=== PATIENT | male | born 1995 | race Caucasian/White ===

== ENCOUNTER 2017-01-13 19:39 | Inpatient (IN) | payer BC ==
[2017-01-13 20:22] LABS: Hematocrit 49 % (42-52); Hemoglobin 16.5 g/dl (14.0-18.0); Mean Corpuscular HGB Conc 34 g/dl (31-36); Mean Corpuscular Hemoglobin 30 pg (27-31); Mean Corpuscular Volume 90 fL (80-94); Mean Platelet Volume 8 um3 (7.4-10.4); Red Blood Count 5.45 10^6/ul (4.0-5.4); Red Cell Distribution Width 13 % (10.5-15); White Blood Count 6.9 10^3/ul (3.5-10.8)
[2017-01-13 20:40] LABS: ALT 38 U/L (7-52); AST 31 U/L (13-39); Albumin 4.6 g/dL (3.2-5.2); Alkaline Phosphatase 77 U/L (34-104); Anion Gap 4 mmol/L (2-11); BUN/Creatinine Ratio 14.4 (8-20); Blood Urea Nitrogen 15 mg/dL (6-24); CO2 Carbon Dioxide 28 mmol/L (22-32); Calcium 9.7 mg/dL (8.6-10.3); Chloride 105 mmol/L (101-111); EGFR African American 115.9 (>60); EGFR Non-African American 90.2 (>60); Globulin 3.2 g/dL (2-4); Glucose 92 mg/dL (70-100); Potassium 3.8 mmol/L (3.5-5.0); Sodium 137 mmol/L (133-145); Total Protein 7.8 g/dL (6.4-8.9)
--- NOTE | 2017-01-13 20:42 | ED ---
Bryon Lea Adam, scribed for Alejandro Perry MD on 01/13/17 at 2027 . Psychiatric Complaint - HPI Summary HPI Summary: Pt is a 22 year old male brought in by police with HI. The pt has been threatening to kill his parents and is concerned about the ghost of Hitler running the [place]. He has a positive psychiatric Hx and has reportedly not been taking his medications as prescribed. - History Of Current Complaint Chief Complaint: [facility] Time Seen by Provider: 01/13/17 19:52 Hx Obtained From: Patient Onset/Duration: Gradual Onset, Lasting Hours, Still Present Timing: Constant Severity Initially: Moderate Severity Currently: Moderate Character: Angry Associated Signs And Symptoms: Positive: Paranoid Behavior Related History: Positive For: Prior Psychiatric Issues Has Homicidal: Reports: Thoughts - Allergies/Home Medications Allergies/Adverse Reactions: Allergies Allergy/AdvReac Type Severity Reaction Status Date / Time No Known Allergies Allergy Verified 06/29/16 19:11 PMH/Surg Hx/FS Hx/Imm Hx Cardiovascular History: Denies: Hx Auto Implanted Cardiovert Defib History: Reports: Other Problems/Disorders - Acute renal injury 07/01/16 Musculoskeletal History: Reports: Other Musculoskeletal History - dx rhabdomyolysis 07/01/16 Psychiatric History: Reports: Hx Anxiety, Hx Depression, Hx Panic Disorder, Hx Inpatient Treatment, Hx Community Mental Health Tx, Hx Schizophrenia, Hx Suicide Attempt, Hx of Violent Episodes Against Others, Hx Substance Abuse Denies: Hx Eating Disorder Infectious Disease History: No Infectious Disease History: Denies: Traveled Outside the [place] in Last 30 Days - Family History Known Family History: Negative: Cardiac Disease, Hypertension, Diabetes - Social History Occupation: Student Lives: With Family - Mother Alcohol Use: Occasionally Hx Substance Use: Yes Substance Use Type: Reports: Synthetic Drugs Substance Use Comment - Amount & Last Used: benzos, ectasy, pain pills Hx Tobacco Use: Yes Smoking Status (MU): Light Every Day Tobacco Smoker Type: Cigarettes Have You Smoked in the Last Year: Yes Review of Systems Negative: Fever Positive: Other - Threatening to kill parents, paranoid about ghost of hitler All Other Systems Reviewed And Are Negative: Yes Physical Exam Triage Information Reviewed: Yes Vital Signs On Initial Exam: Initial Vitals Temp Pulse Resp BP Pulse Ox 97.2 F 90 18 183/104 98 01/13/17 19:58 01/13/17 19:58 01/13/17 19:58 01/13/17 19:58 01/13/17 19:58 Vital Signs Reviewed: Yes Appearance: Positive: Well-Appearing, No Pain Distress Skin: Positive: Warm Head/Face: Positive: Normal Head/Face Inspection Eyes: Positive: Normal ENT: Positive: Hearing grossly normal Neck: Positive: Supple Respiratory/Lung Sounds: Positive: Breath Sounds Present Cardiovascular: Positive: RRR Abdomen Description: Positive: Nontender, Soft Bowel Sounds: Positive: Present Musculoskeletal: Positive: Strength/ROM Intact Neurological: Positive: Sensory/Motor Intact, Alert, Oriented to Person Place, Time Psychiatric: Positive: Anxious Diagnostics - Vital Signs Vital Signs Temp Pulse Resp BP Pulse Ox 01/13/17 19:58 97.2 F 90 18 183/104 98 - Laboratory Lab Results: Lab Results 01/13/17 01/13/17 Range/Units 20:15 20:15 WBC 6.9 (3.5-10.8) 10^3/ul RBC 5.45 H (4.0-5.4) 10^6/ul Hgb 16.5 (14.0-18.0) g/dl Hct 49 (42-52) % MCV 90 (80-94) fL MCH 30 (27-31) pg MCHC 34 (31-36) g/dl RDW 13 (10.5-15) % Plt Count 234 (150-450) 10^3/ul MPV 8 (7.4-10.4) um3 Neut % (Auto) 56.0 (38-83) % Lymph % (Auto) 35.2 (25-47) % Coal % (Auto) 6.5 (1-9) % Eos % (Auto) 2.0 (0-6) % Baso % (Auto) 0.3 (0-2) % Absolute Neuts (auto) 3.9 (1.5-7.7) 10^3/ul Absolute Lymphs (auto) 2.4 (1.0-4.8) 10^3/ul Absolute Monos (auto) 0.4 (0-0.8) 10^3/ul Absolute Eos (auto) 0.1 (0-0.6) 10^3/ul Absolute Basos (auto) 0 (0-0.2) 10^3/ul Absolute Nucleated RBC 0 10^3/ul Nucleated RBC % 0.1 Sodium 137 (133-145) mmol/L Potassium 3.8 (3.5-5.0) mmol/L Chloride 105 (101-111) mmol/L Carbon Dioxide 28 (22-32) mmol/L Anion Gap 4 (2-11) mmol/L BUN 15 (6-24) mg/dL Creatinine 1.04 (0.67-1.17) mg/dL Est GFR ( Amer) 115.9 (>60) Est GFR (Non-Af Amer) 90.2 (>60) BUN/Creatinine Ratio 14.4 (8-20) Glucose 92 (70-100) mg/dL Calcium 9.7 (8.6-10.3) mg/dL Total Bilirubin 0.40 (0.2-1.0) mg/dL AST 31 (13-39) U/L ALT 38 (7-52) U/L Alkaline Phosphatase 77 (34-104) U/L Total Protein 7.8 (6.4-8.9) g/dL Albumin 4.6 (3.2-5.2) g/dL Globulin 3.2 (2-4) g/dL Albumin/Globulin Ratio 1.4 (1-3) TSH Pending Salicylates Pending Acetaminophen Pending Serum Alcohol Pending Result Diagrams: 01/13/17 20:15 01/13/17 20:15 Lab Statement: Any lab studies that have been ordered have been reviewed, and results considered in the medical decision making process. Course/Dx - Differential Dx/Clinical Impression Provider Diagnosis: Homicidal ideation Discharge - Discharge Plan Condition: Fair Disposition: ADMITTED TO [facility] documentation as recorded by the Bryon chanel Adam accurately reflects the service I personally performed and the decisions made by , Alejandro Perry MD.
[2017-01-13 21:07] LABS: Acetaminophen < 15 mcg/mL; Alcohol < 10 mg/dL (<10); Salicylate < 2.50 mg/dL (<30)
[2017-01-13 21:17] LABS: TSH (Thyroid Stimulating Horm) 1.51 mcIU/mL (0.34-5.60)
[2017-01-13 21:33] LABS: Urine Bilirubin Negative (Negative); Urine Glucose Negative (Negative); Urine Nitrite Negative (Negative)
[2017-01-13 21:55] LABS: Benzodiazepine Urine Screen None Detected (None Detect)
[2017-01-14] MEDS ORDERED: Al Hydrox/Mg Hydrox/Simet LIQ* 30 ML UDC PO PRN (04:45)
[2017-01-14] MEDS ORDERED: Acetaminophen TAB* 325 MG PO PRN (04:45)
[2017-01-14] MEDS ORDERED: Nicotine Inhaler* 10 MG AMP INH PRN (04:45)
[2017-01-14] MEDS ORDERED: Haloperidol TAB* 5 MG PO PRN (04:45)
[2017-01-14] MEDS ORDERED: Nicotine GUM* 2 MG PO PRN (04:45)
[2017-01-14] MEDS ORDERED: Mouth Piece, Nicotine* 1 EACH CARTRIDGE INH SCH (04:45)
[2017-01-14] MEDS: Vitamin THERAPEUTIC TAB PO SCH (09:05)
[2017-01-14] MEDS: ARIPiprazole TAB* 5 MG PO SCH (15:38)
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
[2017-01-15] MEDS: ARIPiprazole TAB* 5 MG PO SCH (08:36)
[2017-01-15] MEDS: Vitamin THERAPEUTIC TAB PO SCH (08:36)
--- NOTE | 2017-01-15 10:44 | PN ---
Subjective - Subjective Service Type: 66629 Hosp care 15 min low complexity Subjective: The patient is calm and cooperative but withdrawn. He has difficulty answering future-oriented questions about subjects such as occupational and academic functioning. He is vague and somewhat abulic. The patient seems to display several so-called negative symptoms of schizophrenia such as amotivation, flattening of affect, lack of socialization and lack of spontaneity. Other peers have complained of his lack of boundaries, such as sitting abnormally close to others or walking into their rooms. He is taking the aripiprazole as directed but his insight remains suspect. The patient denies SI or HI. Objective - Appearance Appearance: Well Developed/Nourished Dysmorphic Features: No Hygiene: Normal Grooming: Fairly Well Kept - Behavior Psychomotor Activities: Normal Exhibits Abnormal Movement: No - Attitude and Relatedness Attitude and Relatedness: Withdrawn Eye Contact: Poor - Speech Quality: Unpressured Latencies: Long Quantity: Terse - Mood Patient's Decription of Mood: "Okay" - Affect Observed Affect: Unvariable Affect Consistent with: Euthymia - Thought Process Patient's Thought Process: Impoverished Thought Content: Yes Paranoid Ideation, No Passive Wish, No Suicidal Planning, No Homicidal Ideation - Sensorium Experiencing Hallucinations: No, Sensorium is Clear Type of Hallucinations: Visual: No, Auditory: No, Command: No - Level of Consciousness Level of Consciousness: Alert Orientation: Yes Intact, Yes Orientated to Time, Yes Orientated to Place, Yes Orientated to Person - Impulse Control Impulse Control: Poor - Insight and Judgement Insight and Judgement: Impaired - Group Participation Particating in Group Activities: No - Medication Management Medication Management Adherence: Yes Assessment - Assessment Merits Inpatient Hospitalization: For Immediate Safety, For Stabilization Inpatient DSM-IV Dx: Schizophrenia Clinical Impression: 22 y.o. single, white male with a history of schizophrenia and 4 past acute admissions to the [facility] arrives via a 9.41 in police custody after threatening several times to murder his mother. The patient presented as bizarre, paranoid and unable to control his actions. Plan - Plan Treatment Plan: Name: ELLEN PITT Birthdate: 1995 [id number] We have resumed the patient's aripiprazole at the dose of 10mg PO qday. We will try to re-enroll him in ACT services in the community if he will allow this. Continued Medication Management: Continue Outpt Medication Medications: Current Medications Acetaminophen (Tylenol Tab*) 650 mg PO Q4H PRN PRN Reason: PAIN or TEMP > 101 F Al Hydrox/Mg Hydrox/Simethicone (Maalox Plus*) 30 ml PO Q4H PRN PRN Reason: INDIGESTION Aripiprazole (Abilify Tab*) 10 mg PO DAILY [facility] Last Admin: 01/15/17 08:36 Dose: 10 mg Device (Nicotine Mouth Piece*) 1 each INH .CARTRIDGE [facility] Haloperidol (Haldol Tab*) 5 mg PO Q6H PRN PRN Reason: AGITATION Lorazepam (Ativan Tab(*)) 2 mg PO Q6H PRN PRN Reason: AGITATION Multivitamins (Theragran Tab*) 1 tab PO DAILY [facility] Last Admin: 01/15/17 08:36 Dose: 1 tab Nicotine (Nicotine Inhaler*) 10 mg INH Q2H PRN PRN Reason: CRAVING Nicotine Polacrilex (Nicotine Gum*) 2 mg PO Q2H PRN PRN Reason: CRAVING - Discharge Plan Discharge Plan: Inpatient Hospitalization
--- NOTE | 2017-01-15 11:30 | PN ---
MHU: Group Therapy Note - Service Type Service Type: [id number] Group Psychotherapy - CBT programming: Brendan was attentive and participatory in cbt programming this morning. He described "playing video games" when asked about what he is doing for work, and denied having any interest in attending college. He responded to direct prompts to engage, but was not spontaneous in converstation.
[2017-01-16] MEDS: ARIPiprazole TAB* 5 MG PO SCH (07:24)
[2017-01-16] MEDS: Vitamin THERAPEUTIC TAB PO SCH (07:24)
--- NOTE | 2017-01-16 12:00 | PN ---
MHU: Group Therapy Note - Service Type Service Type: 72621 Group Psychotherapy - Cognitive Behavioral Group Therapy ( CBT):Patient attended CBT programming this morning and presented with flat affect that did not vary with discussion. Although responsive to direct prompts to respond to questions, patient did not engage in spontaneous conversation.
--- NOTE | 2017-01-16 13:05 | PN ---
Subjective - Subjective Service Type: 13186 Hosp care 15 min low complexity Subjective: Joey is calm and cooperative on exam. He denies anger or HI towards his mother but continues to reiterate that he experiences her as controlling and hostile, both towards himself and his father. He apparently told staff this morning that his intention is to remain on aripiprazole for 30 days following discharge and then stop taking it. I try to educate him about the chronic nature of his illness with uncertain success. He is tolerating his medication well and has no acute complaints. Objective - Appearance Appearance: Well Developed/Nourished Dysmorphic Features: No Hygiene: Normal Grooming: Fairly Well Kept - Behavior Psychomotor Activities: Normal Exhibits Abnormal Movement: No - Attitude and Relatedness Attitude and Relatedness: Cooperative Eye Contact: Fair - Speech Quality: Unpressured Latencies: Normal Quantity: Terse - Mood Patient's Decription of Mood: "Okay" - Affect Observed Affect: Unvariable Affect Consistent with: Euthymia - Thought Process Patient's Thought Process: Impoverished Thought Content: Yes Paranoid Ideation, No Passive Wish, No Suicidal Planning, No Homicidal Ideation - Sensorium Experiencing Hallucinations: No, Sensorium is Clear Type of Hallucinations: Visual: No, Auditory: No, Command: No - Level of Consciousness Level of Consciousness: Alert Orientation: Yes Intact, Yes Orientated to Time, Yes Orientated to Place, Yes Orientated to Person - Impulse Control Impulse Control: Poor - Insight and Judgement Insight and Judgement: Impaired - Group Participation Particating in Group Activities: Yes - Medication Management Medication Management Adherence: Yes Assessment - Assessment Merits Inpatient Hospitalization: For Immediate Safety, For Stabilization Inpatient DSM-IV Dx: Schizophrenia Clinical Impression: 22 y.o. single, white male with a history of schizophrenia and 4 past acute admissions to the [facility] arrives via a 9.41 in police custody after threatening several times to murder his mother. The patient presented as bizarre, paranoid and unable to control his actions. Plan - Plan Treatment Plan: Name: ELLEN PITT Birthdate: 1995 [id number] We have resumed the patient's aripiprazole at the dose of 10mg PO qday. We will try to re-enroll him in ACT services in the community if he will allow this. Family meeting with his parents early next week. Continued Medication Management: Continue Outpt Medication Medications: Current Medications Acetaminophen (Tylenol Tab*) 650 mg PO Q4H PRN PRN Reason: PAIN or TEMP > 101 F Al Hydrox/Mg Hydrox/Simethicone (Maalox Plus*) 30 ml PO Q4H PRN PRN Reason: INDIGESTION Aripiprazole (Abilify Tab*) 10 mg PO DAILY [facility] Last Admin: 01/16/17 07:24 Dose: 10 mg Device (Nicotine Mouth Piece*) 1 each INH .CARTRIDGE [facility] Haloperidol (Haldol Tab*) 5 mg PO Q6H PRN PRN Reason: AGITATION Lorazepam (Ativan Tab(*)) 2 mg PO Q6H PRN PRN Reason: AGITATION Multivitamins (Theragran Tab*) 1 tab PO DAILY [facility] Last Admin: 01/16/17 07:24 Dose: 1 tab Nicotine (Nicotine Inhaler*) 10 mg INH Q2H PRN PRN Reason: CRAVING Nicotine Polacrilex (Nicotine Gum*) 2 mg PO Q2H PRN PRN Reason: CRAVING - Discharge Plan Discharge Plan: Inpatient Hospitalization
[2017-01-17] MEDS: ARIPiprazole TAB* 5 MG PO SCH (08:23)
[2017-01-17] MEDS: Vitamin THERAPEUTIC TAB PO SCH (08:23)
[2017-01-17] MEDS: LORazepam TAB(*) 1 MG PO PRN (18:09)
[2017-01-18] MEDS: Vitamin THERAPEUTIC TAB PO SCH (08:02)
[2017-01-18] MEDS: ARIPiprazole TAB* 5 MG PO SCH (08:02)
--- NOTE | 2017-01-18 20:49 | PN ---
Subjective - Subjective Service Type: [id number] Hosp care 15 min low complexity Subjective: Ellen offered no psychiatric complaints today and was found totally engaged in group. Says he is doing fine and denies suicidal/homicidal thoughts. Meds are helpin and wants to go home soon. Objective - Appearance Appearance: Healthy Appearing Dysmorphic Features: No Hygiene: Normal Grooming: Well Kept - Behavior Psychomotor Activities: Normal Exhibits Abnormal Movement: No - Attitude and Relatedness Attitude and Relatedness: Appropriate Eye Contact: Good - Speech Quality: Unpressured Latencies: Normal Quantity: Appropriate - Mood Patient's Decription of Mood: "Fine" - Affect Observed Affect: Non-labile - Thought Process Patient's Thought Process: Coherent, Goal Directed Thought Content: No Passive Wish, No Suicidal Planning, No Homicidal Ideation, No Paranoid Ideation - Sensorium Experiencing Hallucinations: No, Sensorium is Clear Type of Hallucinations: Visual: No, Auditory: No, Command: No - Level of Consciousness Level of Consciousness: Alert Orientation: Yes Intact, Yes Orientated to Time, Yes Orientated to Place, Yes Orientated to Person - Impulse Control Impulse Control: Intact - Insight and Judgement Insight and Judgement: Fair - Group Participation Particating in Group Activities: Yes - Medication Management Medication Management Adherence: Yes Assessment - Assessment Merits Inpatient Hospitalization: Consolidate Improvements, Pending Safe DC Plan Inpatient DSM-IV Dx: Schizophrenia Plan - Plan Treatment Plan: Name: ELLEN PITT Birthdate: 1995 [id number] Continued Medication Management: Continue Outpt Medication Medications: Current Medications Acetaminophen (Tylenol Tab*) 650 mg PO Q4H PRN PRN Reason: PAIN or TEMP > 101 F Al Hydrox/Mg Hydrox/Simethicone (Maalox Plus*) 30 ml PO Q4H PRN PRN Reason: INDIGESTION Aripiprazole (Abilify Tab*) 10 mg PO DAILY [facility] Last Admin: 01/18/17 08:02 Dose: 10 mg Device (Nicotine Mouth Piece*) 1 each INH .CARTRIDGE [facility] Haloperidol (Haldol Tab*) 5 mg PO Q6H PRN PRN Reason: AGITATION Lorazepam (Ativan Tab(*)) 2 mg PO Q6H PRN PRN Reason: AGITATION Last Admin: 01/17/17 18:09 Dose: 2 mg Multivitamins (Theragran Tab*) 1 tab PO DAILY [facility] Last Admin: 01/18/17 08:02 Dose: 1 tab Nicotine (Nicotine Inhaler*) 10 mg INH Q2H PRN PRN Reason: CRAVING Nicotine Polacrilex (Nicotine Gum*) 2 mg PO Q2H PRN PRN Reason: CRAVING - Discharge Plan Discharge Plan: Outpatient Follow Up Outpatient Program: [facility]
[2017-01-19] MEDS: Vitamin THERAPEUTIC TAB PO SCH (08:20)
[2017-01-19] MEDS: ARIPiprazole TAB* 5 MG PO SCH (08:20)
--- NOTE | 2017-01-19 12:52 | PN ---
Subjective - Subjective Service Type: [id number] Hosp care 15 min low complexity Subjective: Mr. Santizo remains vague and paranoid over the weekend, although he continues to deny SI or HI. He is not attending groups and was redirected several times recently to refrain from placing his underwear on the threshold of his door where others could see it. On exam he has a far away look and does not blink when speaking to me. I ask him about increasing his medication and he says "You 're the Doctor." When I respond that it's his health that we're concerned about he becomes angry saying "I'm no longer an involuntary patient at this hospital!" The patient walks away as he says this, indicating that our interview is over. Objective - Appearance Appearance: Well Developed/Nourished Dysmorphic Features: No Hygiene: Normal Grooming: Fairly Well Kept - Behavior Psychomotor Activities: Normal Exhibits Abnormal Movement: No - Attitude and Relatedness Attitude and Relatedness: Psychotically Related Eye Contact: Poor - Speech Quality: Unpressured Latencies: Long Quantity: Appropriate - Mood Patient's Decription of Mood: "Fine" - Affect Observed Affect: Unvariable Affect Consistent with: Dysphoria - Thought Process Patient's Thought Process: Impoverished Thought Content: Yes Paranoid Ideation, No Passive Wish, No Suicidal Planning, No Homicidal Ideation - Sensorium Experiencing Hallucinations: No, Sensorium is Clear Type of Hallucinations: Visual: No, Auditory: No, Command: No - Level of Consciousness Level of Consciousness: Alert Orientation: Yes Intact, Yes Orientated to Time, Yes Orientated to Place, Yes Orientated to Person - Impulse Control Impulse Control: Poor - Insight and Judgement Insight and Judgement: Impaired - Group Participation Particating in Group Activities: No - Medication Management Medication Management Adherence: Yes Assessment - Assessment Merits Inpatient Hospitalization: For Immediate Safety, For Stabilization Inpatient DSM-IV Dx: Schizophrenia Clinical Impression: 22 y.o. single, white male with a history of schizophrenia and 4 past acute [place] [facility] [place] [place] [facility] [place] via a 9.41 in police custody after threatening several times to murder his mother. The patient presented as bizarre, paranoid and unable to control his actions. Plan - Plan Treatment Plan: Name: ELLEN SANTIZO Birthdate: 1995 [id number] We have resumed the patient's aripiprazole at the dose of 10mg PO qday. He remains psychotic and we'll increase aripiprazole to 15mg daily starting tomorrow. We will try to re-enroll him in ACT services in the community if he will allow this. Family meeting with his parents some time this week if he can tolerate this. Continued Medication Management: Continue Outpt Medication Medications: Current Medications Acetaminophen (Tylenol Tab*) 650 mg PO Q4H PRN PRN Reason: PAIN or TEMP > 101 F Al Hydrox/Mg Hydrox/Simethicone (Maalox Plus*) 30 ml PO Q4H PRN PRN Reason: INDIGESTION Aripiprazole (Abilify Tab*) 15 mg PO DAILY [facility] Device (Nicotine Mouth Piece*) 1 each INH .CARTRIDGE [facility] Haloperidol (Haldol Tab*) 5 mg PO Q6H PRN PRN Reason: AGITATION Lorazepam (Ativan Tab(*)) 2 mg PO Q6H PRN PRN Reason: AGITATION Last Admin: 01/17/17 18:09 Dose: 2 mg Multivitamins (Theragran Tab*) 1 tab PO DAILY [facility] Last Admin: 01/19/17 08:20 Dose: 1 tab Nicotine (Nicotine Inhaler*) 10 mg INH Q2H PRN PRN Reason: CRAVING Nicotine Polacrilex (Nicotine Gum*) 2 mg PO Q2H PRN PRN Reason: CRAVING - Discharge Plan Discharge Plan: Inpatient Hospitalization
[2017-01-19] MEDS: LORazepam TAB(*) 1 MG PO PRN (18:18)
[2017-01-20] MEDS: ARIPiprazole TAB* 15 MG PO SCH (08:16)
[2017-01-20] MEDS: Vitamin THERAPEUTIC TAB PO SCH (08:16)
--- NOTE | 2017-01-20 12:35 | PN ---
Subjective - Subjective Service Type: [id number] Hosp care 15 min low complexity Subjective: The patient continues to display mild confusion, speech latency, poor insight and a vacant stare on examination. He is tolerating the aripiprazole well but will not commit to continuing this after discharge. As per staff, his parents are concerned about allowing him to come home after discharge and are inquiring about fpc placement. Objective - Appearance Appearance: Well Developed/Nourished Dysmorphic Features: No Hygiene: Normal Grooming: Well Kept - Behavior Psychomotor Activities: Abnormal-Decreased Exhibits Abnormal Movement: No - Attitude and Relatedness Attitude and Relatedness: Psychotically Related Eye Contact: Fair - Speech Quality: Unpressured Latencies: Long Quantity: Terse - Mood Patient's Decription of Mood: "Fine" - Affect Observed Affect: Unvariable Affect Consistent with: Euthymia - Thought Process Patient's Thought Process: Impoverished Thought Content: No Passive Wish, No Suicidal Planning, No Homicidal Ideation - Sensorium Experiencing Hallucinations: Yes Type of Hallucinations: Visual: No, Auditory: Yes, Command: No - Level of Consciousness Level of Consciousness: Alert Orientation: Yes Intact, Yes Orientated to Time, Yes Orientated to Place, Yes Orientated to Person - Impulse Control Impulse Control: Poor - Insight and Judgement Insight and Judgement: Impaired - Group Participation Particating in Group Activities: No - Medication Management Medication Management Adherence: Yes Assessment - Assessment Merits Inpatient Hospitalization: For Immediate Safety, For Stabilization Inpatient DSM-IV Dx: Schizophrenia Clinical Impression: 22 y.o. single, white male with a history of schizophrenia and 4 past acute admissions to the [facility] arrives via a 9.41 in police custody after threatening several times to murder his mother. The patient presented as bizarre, paranoid and unable to control his actions. Plan - Plan Treatment Plan: Name: ELLEN PITT Birthdate: 1995 [id number] We have resumed the patient's aripiprazole and increased the dose of 15mg PO qday. He remains psychotic and we'll consider a further increase in aripiprazole to 20mg daily later this week if necessary. We will try to re- enroll him in ACT services in the community if he will allow this. Family meeting with his parents some time this week and consider fpc placement. Continued Medication Management: Continue Outpt Medication Medications: Current Medications Acetaminophen (Tylenol Tab*) 650 mg PO Q4H PRN PRN Reason: PAIN or TEMP > 101 F Al Hydrox/Mg Hydrox/Simethicone (Maalox Plus*) 30 ml PO Q4H PRN PRN Reason: INDIGESTION Aripiprazole (Abilify Tab*) 15 mg PO DAILY [facility] Last Admin: 01/20/17 08:16 Dose: 15 mg Device (Nicotine Mouth Piece*) 1 each INH .CARTRIDGE [facility] Haloperidol (Haldol Tab*) 5 mg PO Q6H PRN PRN Reason: AGITATION Lorazepam (Ativan Tab(*)) 2 mg PO Q6H PRN PRN Reason: AGITATION Last Admin: 01/19/17 18:18 Dose: 2 mg Multivitamins (Theragran Tab*) 1 tab PO DAILY [facility] Last Admin: 01/20/17 08:16 Dose: 1 tab Nicotine (Nicotine Inhaler*) 10 mg INH Q2H PRN PRN Reason: CRAVING Nicotine Polacrilex (Nicotine Gum*) 2 mg PO Q2H PRN PRN Reason: CRAVING - Discharge Plan Discharge Plan: Inpatient Hospitalization
[2017-01-20] MEDS: LORazepam TAB(*) 1 MG PO PRN (12:38)
[2017-01-21] MEDS: LORazepam TAB(*) 1 MG PO PRN ×2 (00:06→18:41)
[2017-01-21] MEDS: Vitamin THERAPEUTIC TAB PO SCH (09:27)
[2017-01-21] MEDS: ARIPiprazole TAB* 15 MG PO SCH (09:27)
--- NOTE | 2017-01-21 11:17 | PN ---
[facility]: Group Therapy Note - Service Type Service Type: [id number] Group Psychotherapy - Cognitive Behavioral Group Therapy ( CBT):Patient attended CBT programming this morning and presented with flat affect that did not vary with discussion. Although responsive to direct prompts to respond to questions, patient did not engage in spontaneous conversation.
--- NOTE | 2017-01-21 12:48 | PN ---
Subjective - Subjective Service Type: [id number] Hosp care 15 min low complexity Subjective: The patient continues to present as flat with limited spontaneity in speech or behavior. He is attending groups although he tends not to share much. He is taking his medication and appears to be tolerating it well. He is odd at times on the unit and staff have documented that he approaches them as if to ask questions only to turn around and walk away. He denies SI, HI, AH or VH. Objective - Appearance Appearance: Well Developed/Nourished Dysmorphic Features: No Hygiene: Normal Grooming: Fairly Well Kept - Behavior Psychomotor Activities: Normal Exhibits Abnormal Movement: No - Attitude and Relatedness Attitude and Relatedness: Cooperative Eye Contact: Fair - Speech Quality: Unpressured Latencies: Long Quantity: Terse - Mood Patient's Decription of Mood: "Good" - Affect Observed Affect: Unvariable Affect Consistent with: Euthymia - Thought Process Patient's Thought Process: Impoverished Thought Content: Yes Paranoid Ideation, No Passive Wish, No Suicidal Planning, No Homicidal Ideation - Sensorium Experiencing Hallucinations: No, Sensorium is Clear Type of Hallucinations: Visual: No, Auditory: No, Command: No - Level of Consciousness Level of Consciousness: Alert Orientation: Yes Intact, Yes Orientated to Time, Yes Orientated to Place, Yes Orientated to Person - Impulse Control Impulse Control: Tenuous - Insight and Judgement Insight and Judgement: Fair - Group Participation Particating in Group Activities: Yes - Medication Management Medication Management Adherence: Yes Assessment - Assessment Merits Inpatient Hospitalization: For Immediate Safety, For Stabilization Inpatient DSM-IV Dx: Schizophrenia Clinical Impression: 22 y.o. single, white male with a history of schizophrenia and 4 past acute admissions to the [facility] [place] [facility] arrives via a 9.41 in police custody after threatening several times to murder his mother. The patient presented as bizarre, paranoid and unable to control his actions. Plan - Plan Treatment Plan: Name: ELLEN PITT Birthdate: 1995 [id number] We have resumed the patient's aripiprazole and increased the dose of 15mg PO qday. He remains mildly psychotic and we'll consider a further increase in aripiprazole to 20mg daily later this week if necessary. We will try to re- enroll him in ACT services in the community if he will allow this. Family meeting with his parents some time this week and consider usp placement. Continued Medication Management: Continue Outpt Medication Medications: Current Medications Acetaminophen (Tylenol Tab*) 650 mg PO Q4H PRN PRN Reason: PAIN or TEMP > 101 F Al Hydrox/Mg Hydrox/Simethicone (Maalox Plus*) 30 ml PO Q4H PRN PRN Reason: INDIGESTION Aripiprazole (Abilify Tab*) 15 mg PO DAILY [facility] Last Admin: 01/21/17 09:27 Dose: 15 mg Device (Nicotine Mouth Piece*) 1 each INH .CARTRIDGE [facility] Haloperidol (Haldol Tab*) 5 mg PO Q6H PRN PRN Reason: AGITATION Lorazepam (Ativan Tab(*)) 2 mg PO Q6H PRN PRN Reason: AGITATION Last Admin: 01/21/17 00:06 Dose: 2 mg Multivitamins (Theragran Tab*) 1 tab PO DAILY [facility] Last Admin: 01/21/17 09:27 Dose: 1 tab Nicotine (Nicotine Inhaler*) 10 mg INH Q2H PRN PRN Reason: CRAVING Nicotine Polacrilex (Nicotine Gum*) 2 mg PO Q2H PRN PRN Reason: CRAVING - Discharge Plan Discharge Plan: Inpatient Hospitalization
[2017-01-22 08:04] LABS: HDL Cholesterol 41.8 mg/dL
[2017-01-22] MEDS: Vitamin THERAPEUTIC TAB PO SCH (08:17)
[2017-01-22] MEDS: ARIPiprazole TAB* 15 MG PO SCH (08:17)
[2017-01-22] MEDS ORDERED: Propranolol TAB* 20 MG PO PRN (11:12)
--- NOTE | 2017-01-22 12:21 | PN ---
Subjective - Subjective Service Type: 50490 Hosp care 15 min low complexity Subjective: Joey continues to be awkward and quiet but he denies any specific complaints. He has been using lorazepam consistently and staff is concerned that he may be over-utilizing this. His mother has agreed to come to a family meeting on Thursday but has indicated her reluctance to allow him to return to live with them , citing concerns for her safety. The patient states that propranolol has been helpful before for anxiety and akathisia. He denies SI or HI. Objective - Appearance Appearance: Well Developed/Nourished Dysmorphic Features: No Hygiene: Normal Grooming: Fairly Well Kept - Behavior Psychomotor Activities: Normal Exhibits Abnormal Movement: No - Attitude and Relatedness Attitude and Relatedness: Cooperative Eye Contact: Fair - Speech Quality: Unpressured Latencies: Normal Quantity: Terse - Mood Patient's Decription of Mood: "Okay" - Affect Observed Affect: Unvariable Affect Consistent with: Euthymia - Thought Process Patient's Thought Process: Impoverished Thought Content: Yes Paranoid Ideation, No Passive Wish, No Suicidal Planning, No Homicidal Ideation - Sensorium Experiencing Hallucinations: No, Sensorium is Clear Type of Hallucinations: Visual: No, Auditory: No, Command: No - Level of Consciousness Level of Consciousness: Alert Orientation: Yes Intact, Yes Orientated to Time, Yes Orientated to Place, Yes Orientated to Person - Impulse Control Impulse Control: Poor - Insight and Judgement Insight and Judgement: Impaired - Group Participation Particating in Group Activities: Yes - Medication Management Medication Management Adherence: Yes Assessment - Assessment Merits Inpatient Hospitalization: For Immediate Safety, For Stabilization Inpatient DSM-IV Dx: Schizophrenia Clinical Impression: 22 y.o. single, white male with a history of schizophrenia and 4 past acute admissions to the [facility] [place] [facility] arrives via a 9.41 in police custody after threatening several times to murder his mother. The patient presented as bizarre, paranoid and unable to control his actions. Plan - Plan Treatment Plan: Name: ELLEN PITT Birthdate: 1995 [id number] We have resumed the patient's aripiprazole and increased the dose of 15mg PO qday. He remains mildly psychotic and we'll make a further increase in aripiprazole to 20mg daily starting tomorrow. Will d/c lorazepam and start propranolol 20mg PO BID. We will try to re-enroll him in ACT services in the community if he will allow this. Family meeting with his parents next January 26. Continued Medication Management: Continue Outpt Medication Medications: Current Medications Acetaminophen (Tylenol Tab*) 650 mg PO Q4H PRN PRN Reason: PAIN or TEMP > 101 F Al Hydrox/Mg Hydrox/Simethicone (Maalox Plus*) 30 ml PO Q4H PRN PRN Reason: INDIGESTION Aripiprazole (Abilify Tab*) 20 mg PO DAILY [facility] Device (Nicotine Mouth Piece*) 1 each INH .CARTRIDGE [facility] Haloperidol (Haldol Tab*) 5 mg PO Q6H PRN PRN Reason: AGITATION Multivitamins (Theragran Tab*) 1 tab PO DAILY [facility] Last Admin: 01/22/17 08:17 Dose: 1 tab Nicotine (Nicotine Inhaler*) 10 mg INH Q2H PRN PRN Reason: CRAVING Nicotine Polacrilex (Nicotine Gum*) 2 mg PO Q2H PRN PRN Reason: CRAVING Propranolol HCl (Inderal Tab*) 20 mg PO TID PRN PRN Reason: ANXIETY - Discharge Plan Discharge Plan: Inpatient Hospitalization
[2017-01-22] MEDS: Propranolol TAB* 20 MG PO SCH (20:46)
[2017-01-23] MEDS: Vitamin THERAPEUTIC TAB PO SCH (08:25)
[2017-01-23] MEDS: ARIPiprazole TAB* 20 MG PO SCH (08:26)
[2017-01-23] MEDS: Propranolol TAB* 20 MG PO SCH ×2 (08:26→19:02)
--- NOTE | 2017-01-23 12:36 | PN ---
Subjective - Subjective Service Type: [id number] Hosp care 15 min low complexity Subjective: The patient appears less anxious today and has been participating in groups. Family had a good visit with him per report of ASAF Barrett, who has had daily contact with Joey's mother. The family would consider allowing him back home, but only if the issue of violent statements towards his mother are addressed by the treatment team. Staff informs me that his systolic BP readings are consistently between the 140s and 160s. This continues despite introduction of 20mg propranolol. Objective - Appearance Appearance: Well Developed/Nourished Dysmorphic Features: No Hygiene: Normal Grooming: Fairly Well Kept - Behavior Psychomotor Activities: Normal Exhibits Abnormal Movement: No - Attitude and Relatedness Attitude and Relatedness: Cooperative Eye Contact: Good - Speech Quality: Unpressured Latencies: Normal Quantity: Terse - Mood Patient's Decription of Mood: "Okay" - Affect Observed Affect: Fair Affect Consistent with: Euthymia - Thought Process Patient's Thought Process: Coherent, Impoverished Thought Content: Yes Paranoid Ideation, No Passive Wish, No Suicidal Planning, No Homicidal Ideation - Sensorium Experiencing Hallucinations: No, Sensorium is Clear Type of Hallucinations: Visual: No, Auditory: No, Command: No - Level of Consciousness Level of Consciousness: Alert Orientation: Yes Intact, Yes Orientated to Time, Yes Orientated to Place, Yes Orientated to Person - Impulse Control Impulse Control: Poor - Insight and Judgement Insight and Judgement: Impaired - Group Participation Particating in Group Activities: Yes - Medication Management Medication Management Adherence: Yes Assessment - Assessment Merits Inpatient Hospitalization: For Immediate Safety, For Stabilization Inpatient DSM-IV Dx: Schizophrenia Clinical Impression: 22 y.o. single, white male with a history of schizophrenia and 4 past acute admissions to the [facility] arrives via a 9.41 in police custody after threatening several times to murder his mother. The patient presented as bizarre, paranoid and unable to control his actions. Plan - Plan Treatment Plan: Name: ELLEN PITT Birthdate: 1995 [id number] We have resumed the patient's aripiprazole and increased the dose of 20mg PO qday. He seems improving but it will be interesting to see how he interacts with his family. We will increase propranolol to 40mg PO BID for anxiolytic and antihypertensive benefits. We will try to re-enroll him in ACT services in the community if he will allow this. Family meeting with his parents next January 26 at 14:00. Continued Medication Management: Continue Outpt Medication Medications: Current Medications Acetaminophen (Tylenol Tab*) 650 mg PO Q4H PRN PRN Reason: PAIN or TEMP > 101 F Al Hydrox/Mg Hydrox/Simethicone (Maalox Plus*) 30 ml PO Q4H PRN PRN Reason: INDIGESTION Aripiprazole (Abilify Tab*) 20 mg PO DAILY [facility] Last Admin: 01/23/17 08:26 Dose: 20 mg Device (Nicotine Mouth Piece*) 1 each INH .CARTRIDGE [facility] Haloperidol (Haldol Tab*) 5 mg PO Q6H PRN PRN Reason: AGITATION Hydroxyzine HCl (Atarax Tab*) 50 mg PO Q6H PRN PRN Reason: AGITATION/ANXIETY/INSOMNIA Multivitamins (Theragran Tab*) 1 tab PO DAILY [facility] Last Admin: 01/23/17 08:25 Dose: 1 tab Nicotine (Nicotine Inhaler*) 10 mg INH Q2H PRN PRN Reason: CRAVING Nicotine Polacrilex (Nicotine Gum*) 2 mg PO Q2H PRN PRN Reason: CRAVING Propranolol HCl (Inderal Tab*) 40 mg PO BID [facility] - Discharge Plan Discharge Plan: Inpatient Hospitalization
[2017-01-23] MEDS: hydrOXYzine HCL TAB* 50 MG PO PRN (22:45)
[2017-01-24] MEDS: Vitamin THERAPEUTIC TAB PO SCH (08:36)
[2017-01-24] MEDS: ARIPiprazole TAB* 20 MG PO SCH (08:36)
[2017-01-24] MEDS: Propranolol TAB* 20 MG PO SCH ×2 (08:36→20:20)
[2017-01-24] MEDS: hydrOXYzine HCL TAB* 50 MG PO PRN (23:20)
[2017-01-25] MEDS: Vitamin THERAPEUTIC TAB PO SCH (08:26)
[2017-01-25] MEDS: Propranolol TAB* 20 MG PO SCH ×2 (08:26→20:08)
[2017-01-25] MEDS: ARIPiprazole TAB* 20 MG PO SCH (08:26)
[2017-01-26] MEDS: ARIPiprazole TAB* 20 MG PO SCH (08:10)
[2017-01-26] MEDS: Vitamin THERAPEUTIC TAB PO SCH (08:10)
[2017-01-26] MEDS: Propranolol TAB* 20 MG PO SCH (08:10)
[2017-01-26] MEDS: LURASIDONE 40 MG PO SCH (13:18)
--- NOTE | 2017-01-26 15:11 | PN ---
Subjective - Subjective Service Type: 07491 [facility] Medical Psyc Subjective: The patient is seen for a family meeting attended by his parents, Giovanna and Russ Santizo, and SW Nena Mohamud. The patient reported to me this morning that the restlessness, caused by his aripiprazole, was intolerable and he was going to refuse this from now on. He had talked to a peer that had done well on lurasidone, and Joey was interested in trying this medication. His parents report that they are willing to accept him home, feeling like he's doing better now, although the would like to see how he does on his new medication. His BP continues to be elevated in the 150s systolic. The patient appears vague and withdrawn at times during the meeting but is otherwise cooperative and denies HI or SI. Objective - Appearance Appearance: Well Developed/Nourished Dysmorphic Features: No Hygiene: Normal Grooming: Well Kept - Behavior Psychomotor Activities: Normal Exhibits Abnormal Movement: No - Attitude and Relatedness Attitude and Relatedness: Cooperative Eye Contact: Fair - Speech Quality: Unpressured Latencies: Normal Quantity: Terse - Mood Patient's Decription of Mood: "Fine" - Affect Observed Affect: Unvariable Affect Consistent with: Euthymia - Thought Process Patient's Thought Process: Impoverished Thought Content: No Passive Wish, No Suicidal Planning, No Homicidal Ideation, No Paranoid Ideation - Sensorium Experiencing Hallucinations: No, Sensorium is Clear Type of Hallucinations: Visual: No, Auditory: No, Command: No - Level of Consciousness Level of Consciousness: Alert Orientation: Yes Intact, Yes Orientated to Time, Yes Orientated to Place, Yes Orientated to Person - Impulse Control Impulse Control: Tenuous - Insight and Judgement Insight and Judgement: Fair - Group Participation Particating in Group Activities: Yes - Medication Management Medication Management Adherence: Yes Assessment - Assessment Merits Inpatient Hospitalization: Consolidate Improvements, Pending Safe DC Plan Inpatient DSM-IV Dx: Schizophrenia Clinical Impression: 22 y.o. single, white male with a history of schizophrenia and 4 past acute admissions to the [facility] arrives via a 9.41 in police custody after threatening several times to murder his mother. The patient presented as bizarre, paranoid and unable to control his actions. Plan - Plan Treatment Plan: Name: ELLEN SANTIZO Birthdate: 1995 [id number] The patient is switched from aripiprazole to lurasidone 40mg PO qday. We will increase propranolol to 60mg PO BID for anxiolytic and antihypertensive benefits. The patient is declining ACT services but is accepting follow up referral to a private therapist and psychiatrist, Dr. Nur's private office in [place], [place]. He understands the expectation of his parents that he must stay on his medication if he would like to remain living at their home. Continued Medication Management: Different Medication Medications: Current Medications Acetaminophen (Tylenol Tab*) 650 mg PO Q4H PRN PRN Reason: PAIN or TEMP > 101 F Al Hydrox/Mg Hydrox/Simethicone (Maalox Plus*) 30 ml PO Q4H PRN PRN Reason: INDIGESTION Device (Nicotine Mouth Piece*) 1 each INH .CARTRIDGE PANCHO Haloperidol (Haldol Tab*) 5 mg PO Q6H PRN PRN Reason: AGITATION Hydroxyzine HCl (Atarax Tab*) 50 mg PO Q6H PRN PRN Reason: AGITATION/ANXIETY/INSOMNIA Last Admin: 01/23/17 22:45 Dose: 50 mg Lurasidone HCl (Latuda (Nf)) 40 mg PO DAILY [facility] Last Admin: 01/26/17 13:18 Dose: 40 mg Multivitamins (Theragran Tab*) 1 tab PO DAILY [facility] Last Admin: 01/26/17 08:10 Dose: 1 tab Nicotine (Nicotine Inhaler*) 10 mg INH Q2H PRN PRN Reason: CRAVING Nicotine Polacrilex (Nicotine Gum*) 2 mg PO Q2H PRN PRN Reason: CRAVING Propranolol HCl (Inderal Tab*) 60 mg PO BID [facility] - Discharge Plan Discharge Plan: Inpatient Hospitalization
[2017-01-26] MEDS: Propranolol TAB* 60 MG PO SCH (20:06)
[2017-01-27] MEDS: LURASIDONE 40 MG PO SCH (09:03)
[2017-01-27] MEDS: Vitamin THERAPEUTIC TAB PO SCH (09:03)
[2017-01-27] MEDS: Propranolol TAB* 60 MG PO SCH ×2 (09:03→20:14)
--- NOTE | 2017-01-27 16:20 | PN ---
Subjective - Subjective Service Type: 03754 Hosp care 15 min low complexity Subjective: The patient reports doing well and tolerating lurasidone well so far. He reports a marked improvement in symptoms of restlessness and agitation since discontinuing aripiprazole. His BP numbers look better as well with systolic now in the 130s. He feels ready for d/c tomorrow and denies SI or HI. Objective - Appearance Appearance: Well Developed/Nourished Dysmorphic Features: No Hygiene: Normal Grooming: Well Kept - Behavior Psychomotor Activities: Normal Exhibits Abnormal Movement: No - Attitude and Relatedness Attitude and Relatedness: Cooperative Eye Contact: Good - Speech Quality: Unpressured Latencies: Normal Quantity: Terse - Mood Patient's Decription of Mood: "Good" - Affect Observed Affect: Good Affect Consistent with: Euthymia - Thought Process Patient's Thought Process: Coherent Thought Content: No Passive Wish, No Suicidal Planning, No Homicidal Ideation, No Paranoid Ideation - Sensorium Experiencing Hallucinations: No, Sensorium is Clear Type of Hallucinations: Visual: No, Auditory: No, Command: No - Level of Consciousness Level of Consciousness: Alert Orientation: Yes Intact, Yes Orientated to Time, Yes Orientated to Place, Yes Orientated to Person - Impulse Control Impulse Control: Tenuous - Insight and Judgement Insight and Judgement: Fair - Group Participation Particating in Group Activities: Yes - Medication Management Medication Management Adherence: Yes Assessment - Assessment Merits Inpatient Hospitalization: Consolidate Improvements, Pending Safe DC Plan Inpatient DSM-IV Dx: Schizophrenia Clinical Impression: 22 y.o. single, white male with a history of schizophrenia and 4 past acute admissions to the [facility] arrives via a 9.41 in police custody after threatening several times to murder his mother. The patient presented as bizarre, paranoid and unable to control his actions. Plan - Plan Treatment Plan: Name: ELLEN PITT Birthdate: 1995 [id number] The patient is tolerating lurasidone 40mg PO qday well and seems to be doing adequately. We will increase this to 60mg daily as a more likely therapeutic dose. The patient is declining ACT services but is accepting follow up referral to a private therapist and psychiatrist, Dr. Nur's private office in [place], [place]. He understands the expectation of his parents that he must stay on his medication if he would like to remain living at their home. Likely d/c tomorrow (01/28). Continued Medication Management: Different Medication Medications: Current Medications Acetaminophen (Tylenol Tab*) 650 mg PO Q4H PRN PRN Reason: PAIN or TEMP > 101 F Al Hydrox/Mg Hydrox/Simethicone (Maalox Plus*) 30 ml PO Q4H PRN PRN Reason: INDIGESTION Device (Nicotine Mouth Piece*) 1 each INH .CARTRIDGE [facility] Haloperidol (Haldol Tab*) 5 mg PO Q6H PRN PRN Reason: AGITATION Hydroxyzine HCl (Atarax Tab*) 50 mg PO Q6H PRN PRN Reason: AGITATION/ANXIETY/INSOMNIA Last Admin: 01/23/17 22:45 Dose: 50 mg Lurasidone HCl (Latuda (Nf)) 60 mg PO DAILY [facility] Multivitamins (Theragran Tab*) 1 tab PO DAILY [facility] Last Admin: 01/27/17 09:03 Dose: 1 tab Nicotine (Nicotine Inhaler*) 10 mg INH Q2H PRN PRN Reason: CRAVING Nicotine Polacrilex (Nicotine Gum*) 2 mg PO Q2H PRN PRN Reason: CRAVING Propranolol HCl (Inderal Tab*) 60 mg PO BID [facility] Last Admin: 01/27/17 09:03 Dose: 60 mg - Discharge Plan Discharge Plan: Outpatient Follow Up Outpatient Program: Dr. Nur
[2017-01-27] MEDS: hydrOXYzine HCL TAB* 50 MG PO PRN (22:35)
[2017-01-28] MEDS: Propranolol TAB* 60 MG PO SCH (08:17)
[2017-01-28] MEDS: Vitamin THERAPEUTIC TAB PO SCH (08:17)
[2017-01-28] MEDS ORDERED: LURASIDONE 20 MG PO SCH (09:00)
[2017-01-28 11:26] VITALS: BP 153/78
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
== END 2017-01-28 16:15 | disposition home or self-care (01) | DRG 750 ==
LOC: ED 19:39 → BSU 01-14 05:19
PROVIDERS: ADMIT Psychiatry & Neurology Psychiatry; ATTEND Psychiatry & Neurology Psychiatry
DX: F20.9 Schizophrenia, unspecified (principal); I10 Essential (primary) hypertension; F17.220 Nicotine dependence, chewing tobacco, uncomplicated; Z81.8 Family history of other mental and behavioral disorders
CPT/HCPCS: 36415; 80053; 80061; 80307; 80320; 80329; 81003; 83036; 84443; 85025; 90847; 90853; 99222; 99231; 99238; A9270-GY; G0480

== ENCOUNTER 2018-11-10 23:31 | Inpatient (IN) | payer BC ==
--- NOTE | 2018-11-10 23:53 | ED ---
Psychiatric Complaint - HPI Summary HPI Summary: A 23 y/o M presents to ED for MHE after being confrontational with parents tonight. Pt has PMHx: paranoid schizophrenia, which he feels he doesn't have. Per mom, pt has been off his medication since 10/28/18. He stopped taking it because it was giving him a daily AVALOS and making it hard to sleep. Pt says he lost it and got angry today when he was applying for a job. Per mom, there is a 19 y/o sister in home who is afraid to be alone with him during the day. At bedside, pt states he does not like the provider. Denies other medical issues. Last seen at [facility] two years ago. - History Of Current Complaint Chief Complaint: EDPsychosocial Hx Obtained From: Patient, Family/Board Layer - parents Onset/Duration: Sudden Onset, Still Present Timing: Constant Character: Angry Aggravating Factor(s): Recent Stress, Medication Non-compliance Associated Signs And Symptoms: Positive: Hostile - Allergies/Home Medications Allergies/Adverse Reactions: Allergies Allergy/AdvReac Type Severity Reaction Status Date / Time No Known Allergies Allergy Verified 11/10/18 23:39 Home Medications: Home Medications Cogentin TAB* 1 mg PO DAILY 11/11/18 [History Confirmed 11/11/18] Lurasidone(*) [Latuda] 60 mg PO DAILY 11/11/18 [History Confirmed 11/11/18] PMH/Surg Hx/FS Hx/Imm Hx Previously Healthy: No Cardiovascular History: Denies: Hx Auto Implanted Cardiovert Defib History: Reports: Other Problems/Disorders - Acute renal injury 07/01/16 Musculoskeletal History: Reports: Other Musculoskeletal History - dx rhabdomyolysis 07/01/16 Psychiatric History: Reports: Hx Anxiety, Hx Depression, Hx Panic Disorder, Hx Inpatient Treatment, Hx Community Mental Health Tx, Hx Schizophrenia, Hx Suicide Attempt, Hx of Violent Episodes Against Others, Hx Substance Abuse Denies: Hx Eating Disorder Infectious Disease History: No Infectious Disease History: Denies: Traveled Outside the [place] in Last 30 Days - Family History Known Family History: Negative: Cardiac Disease, Hypertension, Diabetes - Social History Occupation: Unemployed - OTHER Lives: With Family Alcohol Use: Rare Hx Substance Use: Yes Substance Use Comment - Amount & Last Used: benzos, ectasy, pain pills Hx Tobacco Use: Yes Smoking Status (MU): Light Every Day Tobacco Smoker Type: Cigarettes Have You Smoked in the Last Year: Yes Review of Systems Negative: Fever Psychological: Other - pos: angry All Other Systems Reviewed And Are Negative: Yes Physical Exam - Summary Physical Exam Summary: Appearance: Well-appearing, Well-nourished, lying in bed comfortable Skin: Warm, dry, no obvious rash Eyes: sclera anicteric, no conjunctival pallor ENT: mucous membranes moist Neck: deferred Respiratory: No signs of respiratory distress Cardiovascular: Appears well perfused, pulses are nml Abdomen: deferred Musculoskeletal: Moving all 4 extremities without obvious discomfort Neurological: Awake and alert, mentation is normal, speech is fluent and appropriate Psychiatric: affect is guarded but not depressed, does not appear anxious or depressed, no obvious response to internal stimuli Triage Information Reviewed: Yes Vital Signs On Initial Exam: Initial Vitals Temp Pulse Resp BP Pulse Ox 99.4 F 88 16 146/105 100 11/10/18 23:38 11/10/18 23:38 11/10/18 23:38 11/10/18 23:38 11/10/18 23:38 Vital Signs Reviewed: Yes Diagnostics - Vital Signs Vital Signs Temp Pulse Resp BP Pulse Ox 11/10/18 23:38 99.4 F 88 16 146/105 100 - Laboratory Result Diagrams: 11/10/18 23:56 11/10/18 23:55 Lab Statement: Any lab studies that have been ordered have been reviewed, and results considered in the medical decision making process. Course/Dx - Course Course Of Treatment: Pt is a 23 y/o M with PMHx: paranoid schizophrenia presents to ED for MHE after being confrontational with parents tonight. Pt has been medication non-compliant since 10/28/18. Pt is medically clear for MHE at 0005 on 11/11/2018. Labs are unremarkable except for slightly elevated TSH of no clinical significance. At 0637, per health information systems technician: Pt will be voluntarily admitted per Dr. Ram, psych. Dx: schizophrenia. - Differential Dx/Clinical Impression Provider Diagnosis: Schizophrenia Discharge - Sign-Out/Discharge Documenting (check all that apply): Patient Departure - ADMIT to U - Discharge Plan Condition: Guarded Disposition: PSYCHIATRIC FACILITY-[facility] - Billing Disposition and Condition Condition: GUARDED Disposition: Psychiatric Facility [facility] - Attestation Statements Document Initiated by Scribe: Yes Documenting Scribe: Star Alfaro Provider For Whom Yanique is Documenting (Include Credential): Dr. Robson Billings MD Scribe Attestation: I, chon Beltráned for Dr. Robson Billings MD on 11/13/18 at 1847. Scribe Documentation Reviewed: Yes Provider Attestation: The documentation as recorded by the yanique, Star Alfaro accurately reflects the service I personally performed and the decisions made by me, Dr. Robson Billings MD Status of Scribe Document: Viewed
[2018-11-11 00:02] LABS: ABS Basophils 0.1 10^3/ul (0-0.2); ABS Eosinophils 0.1 10^3/ul (0-0.6); ABS Lymphocytes 2.9 10^3/ul (1.0-4.8); ABS Monocytes 0.4 10^3/ul (0-0.8); ABS Nucleated RBC 0 10^3/ul; Eosinophil % 1.2 %; Hematocrit 48 % (42-52); Hemoglobin 16.3 g/dl (14.0-18.0); Lymphocyte % 34.2 %; Mean Corpuscular HGB Conc 34 g/dl (31-36); Mean Corpuscular Hemoglobin 31 pg (27-31); Mean Corpuscular Volume 91 fL (80-94); Mean Platelet Volume 7.5 fL (7.4-10.4); Nucleated Red Blood Cells % 0.1; Platelet Count 284 10^3/ul (150-450); Red Blood Count 5.25 10^6/ul (4.00-5.40); Red Cell Distribution Width 13 % (10.5-15); White Blood Count 8.5 10^3/ul (3.5-10.8)
[2018-11-11 00:21] LABS: ALT 21 U/L (7-52); AST 21 U/L (13-39); Albumin 4.7 g/dL (3.2-5.2); Albumin/Globulin Ratio 1.7 (1-3); Alkaline Phosphatase 70 U/L (34-104); Anion Gap 6 mmol/L (2-11); Blood Urea Nitrogen 17 mg/dL (6-24); CO2 Carbon Dioxide 29 mmol/L (22-32); Calcium 9.7 mg/dL (8.6-10.3); Chloride 103 mmol/L (101-111); EGFR Non-African American 81.1 (>60); Globulin 2.7 g/dL (2-4); Glucose 97 mg/dL (70-100); Potassium 3.8 mmol/L (3.5-5.0); Sodium 138 mmol/L (135-145); Total Protein 7.4 g/dL (6.4-8.9)
[2018-11-11 00:27] LABS: Alcohol < 10 mg/dL (<10); Salicylate < 2.50 mg/dL (<30)
[2018-11-11 00:42] LABS: TSH (Thyroid Stimulating Horm) 5.75 mcIU/mL (0.34-5.60)
[2018-11-11] MEDS ORDERED: Al Hydrox/Mg Hydrox/Simet LIQ* 30 ML UDC PO PRN (08:17)
[2018-11-11] MEDS: Vitamin THERAPEUTIC TAB PO SCH (09:22)
[2018-11-11] MEDS: Benztropine TAB* 1 MG PO SCH (13:11)
[2018-11-11] MEDS: Propranolol TAB* 20 MG PO SCH ×2 (13:11→22:09)
[2018-11-11] MEDS: Lurasidone(*) 60 MG TAB PO SCH (14:21)
--- NOTE | 2018-11-11 15:12 | HP ---
PSYCHIATRIC HISTORY AND PHYSICAL: DATE OF ADMISSION: 11/11/18 JUSTIFICATION FOR ADMISSION: The patient is in need of 24-hour supervision and care secondary to psychosis and inability to care for himself in a less restricted setting. CHIEF COMPLAINT: "That computer was driving me crazy." HISTORY OF PRESENT ILLNESS: The patient is a 23-year-old single white male with a history of schizophrenia who was brought in by his parents due to 2 weeks of nonadherence with antipsychotic medication and resulting onset of psychosis, paranoia and poor self care. The patient apparently stopped taking lurasidone and benztropine around 4 days prior to Marek. His parents typically would not allow him to stay in their home off medications; however, it was so close to the holiday that they did not have the heart to ask him to leave. They almost immediately started observing symptoms of paranoia, which culminated in an event in which he was trying to apply for job on their computer , became hostile, frustrated, angry and agreed to their offer to take him to the hospital. His family was concerned about agitated behavior towards them and they did not feel safe bringing him home from the emergency room. When I met with him, he appears to be fatigued and he is perseverating on a story in which he applied for a job at [employer] over the computer and feels like he went to [employer] web site in which his personal details were stolen, although he cannot provide evidence for this. He tells me that he self discontinued medications due to headaches. Interestingly, his vital signs reveal marked hypertension with systolic values between 144 and 166. The patient denies any mood symptoms or hearing voices or thoughts of harming himself or others. PAST PSYCHIATRIC HISTORY: The patient has had 5 prior [facility] psychiatric hospitalizations, including February 2014, April 2015, June 2015 and June 2016 and his most recent in January 2017. He also had an admission at [facility] in March 2014. His past diagnoses include anxiety disorder not otherwise specified, ADHD and schizophrenia. He was on the [facility] ACT Team, but left their service in July 2016. He has continued to see private psychiatrist, Dr. Nur, who is prescribing him lurasidone and benztropine. Prior medications have included hydroxyzine, Xanax, Zoloft, Adderall and Risperdal. The patient does have at least one suicide attempt in March of 2014, when he tried to hang himself after a breakup with a girlfriend; however, he has not had further suicidal ideation since then. He has no history of overt violence towards others. He has no history of abuse or neglect. He has no history of traumatic brain injury. PAST MEDICAL HISTORY: Significant for tonsillectomy at the age of 6 and chronic hypertension. MEDICATIONS: He is on: 1. Lurasidone 60 mg daily. 2. Cogentin 1 mg daily. ALLERGIES: He has no known drug allergies. FAMILY HISTORY: He has a maternal great uncle who had a nervous breakdown many years ago, but the family does not have more information about this. 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 He has also used synthetic recreational drugs such as ecstasy. Currently, he does chew tobacco occasionally, but this is his only substance of abuse. SOCIAL HISTORY: The patient was born and raised in [place] to an intact family, and his parents are still together. He has a younger sister, aged 18. He is a high school graduate who did some college at [employer], but withdrew for psychiatric reasons. He is heterosexual, but not currently sexually active and has no history of sexually transmitted diseases. Currently , he is unemployed, but actively seeking employment. He is not restorationism nor spiritual. He has no significant legal history. REVIEW OF SYSTEMS: The patient is complaining of headache, but he denies double vision. Denies sore throat, cough, chest pain, difficulty breathing. Denies abdominal pain, nausea, vomiting, diarrhea, or constipation. He denies difficulty ambulating, rashes, enlarged lymph nodes, fevers or changes in weight. PHYSICAL EXAMINATION VITAL SIGNS: Blood pressure 144/103, heart rate 75, temperature 99.1, respiratory rate 16, oxygen saturations are 99% on room air. HEENT: Head is normocephalic, atraumatic. NECK: Supple. CHEST: Clear to auscultation bilaterally. CARDIAC: Reveals normal heart sounds. ABDOMEN: Soft, nontender. SKIN: Warm and dry. MUSCULOSKELETAL: Reveals no sign of edema. NEUROLOGIC: He is grossly intact with no focal deficits. LABORATORY DATA: Complete blood count is within normal limits as is his complete metabolic panel. TSH slightly elevated at 5.75. MENTAL STATUS EXAMINATION: The patient is a young white male, somewhat disheveled, wearing beck sweatpants. I noticed that he has a slight rash, which appears to be a cold sore on the right side of his mouth. He is sitting on a chair on the dayroom in a somewhat slouch position. His eye contact is somewhat intense, and his eyes are extremely wide open. He is calm and cooperative with me. Speech is slow and measured. Mood appears to be anxious with somewhat anxious affect. Thought process is slightly disorganized. Thought content is significant for feelings of paranoia. He is denying suicidal or homicidal ideations. He denies auditory or visual hallucinations. Insight and judgment appeared to be poor given his recent refusal to take medication. Cognitively, he is awake and alert with what would appear to be an average intellect. DIAGNOSES: As follows: AXIS I: Schizophrenia. AXIS II: Deferred. IMPRESSION: The patient is a 23-year-old single white male with a history of schizophrenia brought in by his parents after several weeks of nonadherence with antipsychotic medications leading to paranoia and agitated behavior in his home. He states that he discontinued medications because of headaches, but it is likely that his headaches are truly attributable to elevated blood pressure. He is agreeable to a trial of antihypertensives as well as resumption of psychiatric medications. PLAN: The patient is admitted to the adult behavioral health unit, where he was placed on q. 15 minutes checks for his own safety. We will resume lurasidone 60 mg daily as well as Cogentin 1 mg daily and augment them with propranolol 200 mg twice daily, both to reduce anxiety and to reduce blood pressure. I am hopeful that if his headache goes away with blood pressure control, that he will be more amenable to continuing antipsychotic therapy on an ongoing basis. While he is here, he is certainly encouraged to avail himself with all milieu activities including group and individual psychotherapies. He will be discharged to Dr. Nur's private practice once he is stable enough to warrant this. [id number]/[facility] #: [id number] [facility]
[2018-11-11] MEDS: Acetaminophen TAB* 325 MG PO PRN (15:30)
[2018-11-11] MEDS ORDERED: diPHENhydraMINE PO* 50 MG ONE (17:06)
[2018-11-11] MEDS ORDERED: diPHENhydraMINE PO* 50 MG PO ONE (17:30)
[2018-11-11] MEDS: Nicotine Inhaler* 10 MG AMP INH PRN (18:46)
[2018-11-11] MEDS ORDERED: Mouth Piece, Nicotine* 1 EACH CARTRIDGE ONE (18:47)
[2018-11-12] MEDS: Nicotine Inhaler* 10 MG AMP INH PRN ×4 (08:34→19:54)
[2018-11-12] MEDS: Propranolol TAB* 20 MG PO SCH ×2 (09:34→20:35)
[2018-11-12] MEDS: Benztropine TAB* 1 MG PO SCH (09:34)
[2018-11-12] MEDS: Vitamin THERAPEUTIC TAB PO SCH (09:35)
[2018-11-12] MEDS: Lurasidone(*) 60 MG TAB PO SCH (09:35)
--- NOTE | 2018-11-12 11:40 | PN ---
Subjective - Subjective Date of Service: 11/12/18 Service Type: 35257 Hosp care 15 min low complexity Subjective: Joey refused his lurasidone this morning after experiencing tightening in his jaw last night after administration of the 60mg dose. I spoke with him about options and he would like to see how he can do on a 40mg dose. I also spoke with his mom, Lili Santizo, who indicates that headaches and ear ringing have been significant components to his nonadherence, as he attributes these, perhaps falsely, to lurasidone. The patient denies SI and HI. He seems better organized today. Objective - Appearance Appearance: Well Developed/Nourished Dysmorphic Features: No Hygiene: Normal Grooming: Well Kept - Behavior Psychomotor Activities: Normal Exhibits Abnormal Movement: No - Attitude and Relatedness Attitude and Relatedness: Cooperative Eye Contact: Fair - Speech Quality: Unpressured Latencies: Normal Quantity: Appropriate - Mood Patient's Decription of Mood: "Anxious" - Affect Observed Affect: Tense Affect Consistent with: Dysphoria - Thought Process Patient's Thought Process: Coherent Thought Content: Yes Paranoid Ideation, No Passive Wish, No Suicidal Planning, No Homicidal Ideation - Sensorium Experiencing Hallucinations: No, Sensorium is Clear Type of Hallucinations: Visual: No, Auditory: No, Command: No - Level of Consciousness Level of Consciousness: Alert Orientation: Yes Intact, Yes Orientated to Time, Yes Orientated to Place, Yes Orientated to Person - Impulse Control Impulse Control: Tenuous - Insight and Judgement Insight and Judgement: Fair - Group Participation Particating in Group Activities: Yes - Medication Management Medication Management Adherence: Partial Assessment - Assessment Merits Inpatient Hospitalization: For Immediate Safety, For Stabilization Inpatient DSM-V Dx: F20.9 Clinical Impression: 23 y.o. single, white male, unemployed, living with his parents in [facility], with a history of schizophrenia, brought in by family following onset of worsening delusions and agitation 2 weeks after self-discontinuing lurasidone therapy due to complaints of headache and tinnitis. Routine vitals reveal that he is hypertensive, perhaps causing these symptoms. MHU: Problem List - Patient Problems (1) Schizophrenia Current Visit: No Status: Chronic Priority: High Onset Date: 05/29/15 Code(s): F20.9 - SCHIZOPHRENIA, UNSPECIFIED SNOMED Code(s): 24400148 Plan - Plan Treatment Plan: Name: ELLEN SANTIZO Birthdate: 1995 [id number] We will resume lurasidone at the lower dose of 40mg daily. Start propranolol 20mg PO BID. Will get head MRI and consider neurology consult if headaches do not resolve with improved BP control. Continue inpatient-level care. Continued Medication Management: Continue Outpt Medication Medications: Current Medications Acetaminophen (Tylenol Tab*) 650 mg PO Q4H PRN PRN Reason: PAIN or TEMP > 101 F Last Admin: 11/11/18 15:30 Dose: 650 mg Al Hydrox/Mg Hydrox/Simethicone (Maalox Plus*) 30 ml PO Q4H PRN PRN Reason: INDIGESTION Benztropine Mesylate (Cogentin Tab*) 1 mg PO DAILY [facility] Last Admin: 11/12/18 09:34 Dose: 1 mg Lurasidone HCl (Latuda) 40 mg PO DAILY [facility] Multivitamins (Theragran Tab*) 1 tab PO DAILY [facility] Last Admin: 11/12/18 09:35 Dose: 1 tab Nicotine (Nicotine Inhaler*) 10 mg INH Q2H PRN PRN Reason: CRAVING Last Admin: 11/12/18 08:34 Dose: 10 mg Propranolol HCl (Inderal Tab*) 20 mg PO BID [facility] Last Admin: 11/12/18 09:34 Dose: 20 mg - Discharge Plan Discharge Plan: Inpatient Hospitalization
[2018-11-12] MEDS: Lurasidone(*) 40 MG TAB PO SCH (13:18)
[2018-11-12] MEDS ORDERED: LORazepam TAB(*) 1 MG ONE (15:20)
[2018-11-12] MEDS ORDERED: LORazepam TAB(*) 1 MG PO ONE (15:20)
[2018-11-13 07:21] LABS: HDL Cholesterol 39.4 mg/dL
[2018-11-13] MEDS: Propranolol TAB* 20 MG PO SCH ×2 (08:09→20:56)
[2018-11-13] MEDS: Vitamin THERAPEUTIC TAB PO SCH (08:09)
[2018-11-13] MEDS: Lurasidone(*) 40 MG TAB PO SCH (08:10)
[2018-11-13] MEDS: Benztropine TAB* 1 MG PO SCH (08:10)
[2018-11-13] MEDS ORDERED: Mouth Piece, Nicotine* 1 EACH CARTRIDGE ONE (08:13)
[2018-11-13] MEDS: Nicotine Inhaler* 10 MG AMP INH PRN ×4 (08:15→20:57)
[2018-11-13] MEDS ORDERED: LORazepam TAB(*) 1 MG PO ONE (09:00)
--- NOTE | 2018-11-13 17:26 | PN ---
Subjective - Subjective Date of Service: 11/13/18 Service Type: [id number] Hosp care 15 min low complexity Subjective: Ellen is happy in the milieu and pleasant during the assessment. Kind of minimizing both mental health and substance use problems. However, denies mood, thoughts or perceptual problems. Looking forwards to go home soon. Denies SI or HI. Objective - Appearance Appearance: Well Developed/Nourished Dysmorphic Features: No Hygiene: Normal Grooming: Well Kept - Behavior Psychomotor Activities: Normal Exhibits Abnormal Movement: No - Attitude and Relatedness Attitude and Relatedness: Appropriate Eye Contact: Good - Speech Quality: Unpressured Latencies: Normal Quantity: Appropriate - Mood Patient's Decription of Mood: "Fine" - Affect Observed Affect: Non-labile Affect Consistent with: Euthymia - Thought Process Patient's Thought Process: Coherent, Goal Directed Thought Content: No Passive Wish, No Suicidal Planning, No Homicidal Ideation, No Paranoid Ideation - Sensorium Experiencing Hallucinations: No, Sensorium is Clear Type of Hallucinations: Visual: No, Auditory: No, Command: No - Level of Consciousness Level of Consciousness: Alert Orientation: Yes Intact, Yes Orientated to Time, Yes Orientated to Place, Yes Orientated to Person - Insight and Judgement Insight and Judgement: Good - Group Participation Particating in Group Activities: Yes - Medication Management Medication Management Adherence: Yes Assessment - Assessment Merits Inpatient Hospitalization: Consolidate Improvements, Pending Safe DC Plan Inpatient DSM-V Dx: F20.9 Clinical Impression: 23 y.o. single, white male, unemployed, living with his parents in [facility], with a history of schizophrenia, brought in by family following onset of worsening delusions and agitation 2 weeks after self-discontinuing lurasidone therapy due to complaints of headache and tinnitis. Routine vitals reveal that he is hypertensive, perhaps causing these symptoms. Plan - Plan Treatment Plan: Name: ELLEN PITT Birthdate: 1995 [id number] We will resume lurasidone at the lower dose of 40mg daily. Start propranolol 20mg PO BID. Will get head MRI and consider neurology consult if headaches do not resolve with improved BP control. Continue inpatient-level care. Continued Medication Management: Continue Outpt Medication Medications: Current Medications Acetaminophen (Tylenol Tab*) 650 mg PO Q4H PRN PRN Reason: PAIN or TEMP > 101 F Last Admin: 11/11/18 15:30 Dose: 650 mg Al Hydrox/Mg Hydrox/Simethicone (Maalox Plus*) 30 ml PO Q4H PRN PRN Reason: INDIGESTION Benztropine Mesylate (Cogentin Tab*) 1 mg PO DAILY [facility] Last Admin: 11/13/18 08:10 Dose: 1 mg Lurasidone HCl (Latuda) 40 mg PO DAILY [facility] Last Admin: 11/13/18 08:10 Dose: 40 mg Multivitamins (Theragran Tab*) 1 tab PO DAILY [facility] Last Admin: 11/13/18 08:09 Dose: 1 tab Nicotine (Nicotine Inhaler*) 10 mg INH Q2H PRN PRN Reason: CRAVING Last Admin: 11/13/18 15:28 Dose: 10 mg Propranolol HCl (Inderal Tab*) 20 mg PO BID [facility] Last Admin: 11/13/18 08:09 Dose: 20 mg - Discharge Plan Discharge Plan: Outpatient Follow Up Outpatient Program: [facility]
[2018-11-14] MEDS: Propranolol TAB* 20 MG PO SCH ×2 (08:37→19:53)
[2018-11-14] MEDS: Lurasidone(*) 40 MG TAB PO SCH (08:38)
[2018-11-14] MEDS: Benztropine TAB* 1 MG PO SCH ×2 (08:38→08:39)
[2018-11-14] MEDS: Nicotine Inhaler* 10 MG AMP INH PRN ×2 (08:38→11:55)
[2018-11-14] MEDS: Vitamin THERAPEUTIC TAB PO SCH (08:38)
[2018-11-14] MEDS: Acetaminophen TAB* 325 MG PO PRN (11:32)
[2018-11-15] MEDS: Benztropine TAB* 1 MG PO SCH (10:10)
[2018-11-15] MEDS: Vitamin THERAPEUTIC TAB PO SCH (10:11)
[2018-11-15] MEDS: Propranolol TAB* 20 MG PO SCH (10:11)
[2018-11-15] MEDS: Lurasidone(*) 40 MG TAB PO SCH (10:11)
[2018-11-15] MEDS ORDERED: Mouth Piece, Nicotine* 1 EACH CARTRIDGE ONE (12:23)
--- NOTE | 2018-11-15 13:01 | PN ---
Subjective - Subjective Date of Service: 11/15/18 Service Type: [id number] Hosp care 15 min low complexity Subjective: Ellen has been taking his meds as indicated and does not demonstrate overt paranoia, however, his conversation is slightly disjointed, as he switches from topics that are not related and shows persecutory ideas about his mother. "I wouldn't talk to her if I was you. She'll cut you down when you least expect it. That's the way she is. She's the head of our household." He still has elevated blood pressure and is still having some AVALOS and tinnitus. He denies SI or HI. I spoke with his mom, Lili, who feels like he is improved but not doing as well as he typically does on the full 60mg of lurasidone. Objective - Appearance Appearance: Well Developed/Nourished Dysmorphic Features: No Hygiene: Normal Grooming: Well Kept - Behavior Psychomotor Activities: Normal Exhibits Abnormal Movement: No - Attitude and Relatedness Attitude and Relatedness: Cooperative Eye Contact: Fair - Speech Quality: Unpressured Latencies: Normal Quantity: Appropriate - Mood Patient's Decription of Mood: "Okay" - Affect Observed Affect: Fair Affect Consistent with: Euthymia - Thought Process Patient's Thought Process: Coherent Thought Content: Yes Paranoid Ideation, No Passive Wish, No Suicidal Planning, No Homicidal Ideation - Sensorium Experiencing Hallucinations: No, Sensorium is Clear Type of Hallucinations: Visual: No, Auditory: No, Command: No - Level of Consciousness Level of Consciousness: Alert Orientation: Yes Intact, Yes Orientated to Time, Yes Orientated to Place, Yes Orientated to Person - Impulse Control Impulse Control: Tenuous - Insight and Judgement Insight and Judgement: Fair - Group Participation Particating in Group Activities: Yes - Medication Management Medication Management Adherence: Yes Assessment - Assessment Merits Inpatient Hospitalization: Consolidate Improvements, Pending Safe DC Plan Inpatient DSM-V Dx: F20.9 Clinical Impression: 23 y.o. single, white male, unemployed, living with his parents in [facility], with a history of schizophrenia, brought in by family following onset of worsening delusions and agitation 2 weeks after self-discontinuing lurasidone therapy due to complaints of headache and tinnitis. Routine vitals reveal that he is hypertensive, perhaps causing these symptoms. MHU: Problem List - Patient Problems (1) Schizophrenia Current Visit: No Status: Chronic Priority: High Onset Date: 05/29/15 Code(s): F20.9 - SCHIZOPHRENIA, UNSPECIFIED SNOMED Code(s): 22986375 Plan - Plan Treatment Plan: Name: ELLEN PITT Birthdate: 1995 [id number] We will increase lurasidone to the outpatient dose of 60mg daily. Increase propranolol to 30mg PO BID. Target tomorrow for discharge. Continued Medication Management: Continue Outpt Medication Medications: Current Medications Acetaminophen (Tylenol Tab*) 650 mg PO Q4H PRN PRN Reason: PAIN or TEMP > 101 F Last Admin: 11/14/18 11:32 Dose: 650 mg Al Hydrox/Mg Hydrox/Simethicone (Maalox Plus*) 30 ml PO Q4H PRN PRN Reason: INDIGESTION Benztropine Mesylate (Cogentin Tab*) 1 mg PO DAILY [facility] Last Admin: 11/15/18 10:10 Dose: 1 mg Lurasidone HCl (Latuda) 60 mg PO DAILY [facility] Multivitamins (Theragran Tab*) 1 tab PO DAILY [facility] Last Admin: 11/15/18 10:11 Dose: 1 tab Nicotine (Nicotine Inhaler*) 10 mg INH Q2H PRN PRN Reason: CRAVING Last Admin: 11/14/18 11:55 Dose: 10 mg Propranolol HCl (Inderal Tab*) 30 mg PO BID [facility] - Discharge Plan Discharge Plan: Outpatient Follow Up Lab Results - Lab Results Lab Results: 11/13/18 11/13/18 06:56 06:56 Hemoglobin A1c 4.4 Triglycerides 80 Cholesterol 160 LDL Cholesterol 105 HDL Cholesterol 39.4
[2018-11-15] MEDS: Nicotine Inhaler* 10 MG AMP INH PRN (17:08)
[2018-11-15] MEDS: Propranolol TAB* 10 MG PO SCH (19:48)
[2018-11-16 08:01] VITALS: BP 140/82
[2018-11-16] MEDS: Propranolol TAB* 10 MG PO SCH (08:15)
[2018-11-16] MEDS: Vitamin THERAPEUTIC TAB PO SCH (08:15)
[2018-11-16] MEDS: Benztropine TAB* 1 MG PO SCH (08:15)
[2018-11-16] MEDS ORDERED: Lurasidone(*) 60 MG TAB PO SCH (09:00)
--- NOTE | 2018-11-16 11:42 | PN ---
MHU: Group Therapy Note - Service Type Service Type: [id number] Group Psychotherapy - Cognitive Behavioral Group Therapy ( CBT):Patient was attentive and participatory in CBT programming this morning, and remained in good behavioral control. Patient expressed positive insights regarding relevant treatment interventions and goals.
--- NOTE | 2018-11-16 17:03 | DS ---
DISCHARGE SUMMARY: DATE OF ADMISSION: 11/11/18 DATE OF DISCHARGE: 11/16/18 DISCHARGE DIAGNOSES: As follows: [place] I: Schizophrenia. [place] II: Deferred. CONDITION AT THE TIME OF DISCHARGE: Improved. The patient is no longer showing evidence of psychotic thinking. He is not paranoid. He is taking his medications as directed and tolerating them well. The patient's blood pressure is significantly better, now that he has been placed on an antihypertensive. He has been going to groups, social with peers, with a bright affect. He has been calm, cooperative, and visible on the unit. We have just had a therapeutic family meeting with his mother and father and they are in agreement that Joey is back to his baseline and they are willing to take him home at this time. His followup with both his primary care provider and outpatient psychiatrist will be within 1 week of discharge. MENTAL STATUS EXAM AT THE TIME OF DISCHARGE: The patient is a young white male, who is clean, well groomed, wearing a red sweatshirt and jeans. He is calm, cooperative, sitting in the conference room in a chair with good posture. Eye contact is reasonable. He is calm, cooperative. Speech has a normal rate, tone , and volume. Mood appears to be euthymic with a full affect. Thought process is linear, goal directed. Thought content is significant for his desire to be discharged from the hospital. He denies suicidal or homicidal ideations. He denies auditory or visual hallucination. There is no further evidence of paranoid thinking. Insight and judgment are fair given his willingness to follow up with outpatient treatment. Cognitively, he is awake and alert with what would appear to be an average intellect. LABORATORY DATA: Comprehensive metabolic testing was performed on 11/13/18 revealing hemoglobin A1c of 4.4, triglycerides 80, cholesterol 160, LDL cholesterol 105, HDL cholesterol 39.4. DISCHARGE INSTRUCTIONS: To the patient are as follows: Part A. Medications: The patient is on lurasidone 60 mg p.o. daily, benztropine 1 mg p.o. daily, and propranolol 40 mg p.o. b.i.d. Part B. Diet is regular. Part C. Activities as tolerated. The patient is a nonsmoker. There are no laboratory or diagnostic studies pending at the time of discharge. Part D. Followup care: The patient will be seen on 11/22/18, at 8 a.m. by his outpatient primary care provider, Dr. Noam Vergara, in [place], [place]. Later that day at 12:40 p.m., he will see Dr. Nur, his outpatient psychiatrist in [place], [place]. Part E. Substance abuse followup is not applicable. HOSPITAL COURSE: Part A. Reason for Admission: The patient is a 23-year-old single white male with a history of schizophrenia, who was brought in by his parents due to 2 weeks of non- adherence with antipsychotic medication and resulting onset of psychosis, paranoia, and poor self-care. The patient apparently stopped taking lurasidone and benztropine around 4 days prior to Marek. His parents typically would not allow him to stay in their home off medications; however, it was so close to the holiday that they did not have the heart to ask him to leave. They almost immediately started observing symptoms of paranoia, which culminated in an event in which he was trying to apply for a job on their computer, became hostile and frustrated, angry, and agreed to their offer to take him to the hospital. His family was concerned about agitated behavior towards them and they did not feel safe bringing him home from the emergency room. When I met with him, he appeared to be fatigued and was perseverating about a story in which he applied for a job at [employer] over the computer and felt that he went to a [employer] website in which his personal details were stolen. The patient could not provide any evidence for this and he did seem delusional. He told me that he had self-discontinued medications due to headaches and tinnitus. Interestingly, his vital signs revealed marked hypertension with systolic values between a 144 and 166. The patient denied any mood symptoms or hearing voices or thoughts of harming himself or others at the time of admission. Part B. Psychiatric treatment rendered: The patient was admitted to the adult behavioral health unit and placed on q.15 minute checks for his own safety. We did resume lurasidone, albeit at the lower dose of 40 mg p.o. daily. For his headaches, we initiated treatment with propranolol, initially at 20 mg twice daily, but steadily titrated to 40 mg twice daily. His headaches and tinnitus did appear to improve with better blood pressure control. We did check an MRI of his brain without contrast, which showed no structural deficits. This was done to rule out any organic causes of headache. The patient continued to be a little bit disorganized on the lower dose of lurasidone, so this was increased to his outpatient dose of 60 mg daily. He had no issue with this dose of the medicine and was well enough to tolerate milieu activities as well as a therapeutic family meeting with his parents. Both his mother and father are indicating they feel that Brendan is back to his psychiatric baseline at this time and both the parents and the patient are appropriately requesting discharge to his home. The patient is agreeable with following up with his primary care provider as well as his psychiatrist, Dr. Nur in [place]. At this time, we see no further need for restrictive inpatient care and we are wishing Brendan the best for safe and healthy future. [id number]/[facility] #: [id number] [facility]TDD
[2018-11-16] MEDS ORDERED: Propranolol TAB* 40 MG PO SCH (21:00)
== END 2018-11-16 13:10 | disposition home or self-care (01) | DRG 750 ==
LOC: ED 23:31 → BSU 11-11 07:20
PROVIDERS: ADMIT Psychiatry & Neurology Psychiatry; ATTEND Psychiatry & Neurology Psychiatry
DX: F20.9 Schizophrenia, unspecified (principal); F17.220 Nicotine dependence, chewing tobacco, uncomplicated; Z79.899 Other long term (current) drug therapy; Z81.8 Family history of other mental and behavioral disorders
CPT/HCPCS: 36415; 70551; 80053; 80061; 80320; 80329; 83036; 84443; 85025; 90853; 99222; 99231; 99238; 99284; A9270-GY; G0480

== ENCOUNTER 2018-12-10 14:13 | Inpatient (IN) | payer BC ==
--- NOTE | 2018-12-10 14:35 | ED ---
Psychiatric Complaint - HPI Summary HPI Summary: This patient is a 23 year old M presenting to [facility] accompanied by with a chief complaint of psychiatric problems. The patient says he couldnt sleep and he has been off his medicine for schizophrenia. He says he has had no hallucinations but he had thought that somebody was in his house. He states he is not sure why he is here but that he does not feel right after he feels he had a psychiatric episode last night. - History Of Current Complaint Chief Complaint: EDMentalHealth Time Seen by Provider: 12/10/18 14:25 Hx Obtained From: Patient Onset/Duration: Sudden Onset Timing: Constant Severity Initially: Mild Severity Currently: None Related History: Positive For: Prior Psychiatric Issues Has Suicidal: Denies: Thoughts, With A Plan Has Homicidal: Denies: Thoughts, With A Plan - Allergies/Home Medications Allergies/Adverse Reactions: Allergies Allergy/AdvReac Type Severity Reaction Status Date / Time No Known Allergies Allergy Verified 11/10/18 23:39 PMH/Surg Hx/FS Hx/Imm Hx Cardiovascular History: Reports: Hx Hypertension Denies: Hx Auto Implanted Cardiovert Defib, Hx Pacemaker/ICD History: Reports: Other Problems/Disorders - Acute renal injury 07/01/16 Musculoskeletal History: Reports: Other Musculoskeletal History - dx rhabdomyolysis 07/01/16 Sensory History: Denies: Hx Contacts or Glasses, Hx Hearing Aid Opthamlomology History: Denies: Hx Contacts or Glasses Psychiatric History: Reports: Hx Anxiety, Hx Depression, Hx Panic Disorder, Hx Inpatient Treatment, Hx Community Mental Health Tx, Hx Schizophrenia, Hx Suicide Attempt, Hx of Violent Episodes Against Others, Hx Substance Abuse Denies: Hx Eating Disorder Infectious Disease History: No Infectious Disease History: Denies: Traveled Outside the [place] in Last 30 Days - Family History Known Family History: Negative: Cardiac Disease, Hypertension, Diabetes - Social History Alcohol Use: Rare Hx Substance Use: Yes Substance Use Type: Reports: None Substance Use Comment - Amount & Last Used: benzos, ectasy, pain pills Hx Tobacco Use: Yes Smoking Status (MU): Light Every Day Tobacco Smoker Type: Cigarettes Have You Smoked in the Last Year: Yes Review of Systems Negative: Fever Positive: Other - Psychotic, insomnia All Other Systems Reviewed And Are Negative: Yes Physical Exam - Summary Physical Exam Summary: VITAL SIGNS: Reviewed. GENERAL: Patient is a well-developed and nourished MALE who is lying comfortable in the stretcher. Patient is not in any acute respiratory distress. HEAD AND FACE: No signs of trauma. No ecchymosis, hematomas or skull depressions. No sinus tenderness. EYES: PERRLA, EOMI x 2, No injected conjunctiva, no nystagmus. EARS: Hearing grossly intact. Ear canals and tympanic membranes are within normal limits. MOUTH: Oropharynx within normal limits. NECK: Supple, trachea is midline, no adenopathy, no JVD, no carotid bruit, no c- spine tenderness, neck with full ROM. CHEST: Symmetric, no tenderness at palpation LUNGS: Clear to auscultation bilaterally. No wheezing or crackles. CVS: Regular rate and rhythm, S1 and S2 present, no murmurs or gallops appreciated. ABDOMEN: Soft, non-tender. No signs of distention. No rebound no guarding, and no masses palpated. Bowel sounds are normal. EXTREMITIES: FROM in all major joints, no edema, no cyanosis or clubbing. NEURO: Alert and oriented x 3. No acute neurological deficits. Speech is normal and follows commands. PSYCH: Depressed, quiet, and denies any suicidal thoughts or plan. No homicidal thoughts or plan. Signs of Psychosis. No tangential speech. SKIN: Dry and warm Triage Information Reviewed: Yes Vital Signs On Initial Exam: Initial Vitals Temp Pulse Resp BP Pulse Ox 99.1 F 132 20 150/117 100 12/10/18 14:16 12/10/18 14:16 12/10/18 14:16 12/10/18 14:16 12/10/18 14:16 Vital Signs Reviewed: Yes Diagnostics - Vital Signs Vital Signs Temp Pulse Resp BP Pulse Ox 12/10/18 14:16 99.1 F 132 20 150/117 100 - Laboratory Result Diagrams: 12/10/18 14:35 12/10/18 14:35 Lab Statement: Any lab studies that have been ordered have been reviewed, and results considered in the medical decision making process. Course/Dx - Course Assessment/Plan: Blood work w/o a significant abnormality. He is medically cleared. He is awaiting for a MHE. Patient is hemodynamically stable and A+O x 3. Dr. Oliver the reassessment of the patient and he recommends admission to his services for further workup and management. Diagnosis is schizophrenia. - Differential Dx/Clinical Impression Differential Diagnosis/HQI/PQRI: Positive: Acute Psychosis, Anxiety Provider Diagnosis: Schizophrenia Discharge - Sign-Out/Discharge Documenting (check all that apply): Patient Departure - Admission, per Dr. Oliver MHE - Discharge Plan Condition: Stable Disposition: ADMITTED TO [facility] - Billing Disposition and Condition Condition: STABLE Disposition: Admitted to [facility] - Attestation Statements Document Initiated by Scribe: Yes Documenting Scribe: Varun Gonzalez Provider For Whom Jad is Documenting (Include Credential): Michael Fagan MD Scribe Attestation: Varun Lea, scribed for Michael Fagan MD on 12/11/18 at 0836. Scribe Documentation Reviewed: Yes Provider Attestation: The documentation as recorded by the Varun chanel accurately reflects the service I personally performed and the decisions made by Michael hinojosa MD Status of Scribe Document: Viewed
[2018-12-10 14:44] LABS: ABS Basophils 0 10^3/ul (0-0.2); ABS Eosinophils 0 10^3/ul (0-0.6); ABS Lymphocytes 1.1 10^3/ul (1.0-4.8); ABS Monocytes 0.4 10^3/ul (0-0.8); ABS Neutrophils 6.3 10^3/ul (1.5-7.7); ABS Nucleated RBC 0 10^3/ul; Eosinophil % 0.3 %; Hematocrit 47 % (42-52); Lymphocyte % 13.8 %; Mean Corpuscular HGB Conc 34 g/dl (31-36); Mean Corpuscular Hemoglobin 31 pg (27-31); Mean Corpuscular Volume 91 fL (80-94); Mean Platelet Volume 7.4 fL (7.4-10.4); Nucleated Red Blood Cells % 0.1; Platelet Count 274 10^3/ul (150-450); Red Blood Count 5.18 10^6/ul (4.00-5.40); Red Cell Distribution Width 13 % (10.5-15); White Blood Count 7.8 10^3/ul (3.5-10.8)
[2018-12-10 15:12] LABS: ALT 24 U/L (7-52); AST 26 U/L (13-39); Albumin/Globulin Ratio 1.8 (1-3); Alkaline Phosphatase 73 U/L (34-104); Anion Gap 8 mmol/L (2-11); Blood Urea Nitrogen 12 mg/dL (6-24); CO2 Carbon Dioxide 27 mmol/L (22-32); Calcium 9.4 mg/dL (8.6-10.3); Chloride 103 mmol/L (101-111); EGFR African American 91.6 (>60); EGFR Non-African American 75.7 (>60); Globulin 2.8 g/dL (2-4); Glucose 134 mg/dL (70-100); Potassium 3.9 mmol/L (3.5-5.0); Sodium 138 mmol/L (135-145); Total Protein 7.8 g/dL (6.4-8.9)
[2018-12-10 15:20] LABS: Acetaminophen < 15 mcg/mL; Alcohol < 10 mg/dL (<10); Salicylate < 2.50 mg/dL (<30)
[2018-12-10 15:34] LABS: TSH (Thyroid Stimulating Horm) 4.75 mcIU/mL (0.34-5.60)
[2018-12-10] MEDS: Acetaminophen TAB* 325 MG PO PRN (19:06)
[2018-12-10] MEDS ORDERED: OLANzapine TAB* 10 MG ONE (19:33)
[2018-12-10] MEDS ORDERED: Al Hydrox/Mg Hydrox/Simet LIQ* 30 ML UDC PO PRN (19:35)
[2018-12-10] MEDS ORDERED: OLANzapine TAB* 10 MG PO PRN (19:49)
[2018-12-10] MEDS: Benztropine TAB* 1 MG PO SCH (20:59)
[2018-12-10] MEDS: Propranolol TAB* 40 MG PO SCH (21:23)
[2018-12-11 08:21] LABS: HDL Cholesterol 45.8 mg/dL
[2018-12-11] MEDS ORDERED: Lurasidone(*) 60 MG TAB PO SCH (09:00)
[2018-12-11] MEDS: Multivitamins/Minerals TAB PO SCH (11:03)
[2018-12-11] MEDS: Benztropine TAB* 1 MG PO SCH (11:03)
[2018-12-11] MEDS: Propranolol TAB* 40 MG PO SCH ×2 (11:03→20:07)
[2018-12-11] MEDS ORDERED: OLANzapine TAB* 5 MG PO PRN (12:53)
[2018-12-11] MEDS ORDERED: Benztropine TAB* 1 MG PO PRN (13:18)
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
[2018-12-11] MEDS: OLANzapine TAB* 5 MG PO SCH (20:07)
[2018-12-12] MEDS: Propranolol TAB* 40 MG PO SCH ×2 (07:34→19:49)
[2018-12-12] MEDS: Multivitamins/Minerals TAB PO SCH (07:35)
--- NOTE | 2018-12-12 12:41 | PN ---
Progress Note - Progress Note Date of Service: 12/12/18 Note: Mr Santizo punched a wall. he has no signs on exam of broken bone. X-ray of hand pending rads read. He reports he will not again punch a wall. Had reacted to irritating interaction with another patient. Remains pleasant and collaborative on brief interview. Denies any continued psychosis, adverse reaction to medication, or dangerous intent or plan.
[2018-12-12] MEDS: OLANzapine TAB* 5 MG PO SCH (19:49)
[2018-12-13 02:42] LABS: Urine Appearance Cloudy; Urine Bilirubin Negative (Negative); Urine Blood Negative (Negative); Urine Color Yellow; Urine Glucose Negative (Negative); Urine Ketones Negative (Negative); Urine Nitrite Negative (Negative); Urine Protein Negative (Negative); Urine Specific Gravity 1.011 (1.010-1.030); Urine Urobilinogen Negative (Negative)
[2018-12-13 03:15] LABS: Barbiturates Urine Screen None Detected (None Detect); Benzodiazepine Urine Screen None Detected (None Detect); Urine Cannabinoids Screen None Detected (None Detect)
[2018-12-13] MEDS: Multivitamins/Minerals TAB PO SCH (08:19)
[2018-12-13] MEDS: Propranolol TAB* 40 MG PO SCH (08:20)
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
[2018-12-13] MEDS: Lisinopril TAB* 10 MG PO SCH (15:13)
[2018-12-13] MEDS: OLANzapine TAB* 5 MG PO SCH (19:20)
[2018-12-14] MEDS: Lisinopril TAB* 10 MG PO SCH ×2 (10:44→11:30)
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
[2018-12-14] MEDS: LORazepam TAB(*) 1 MG PO PRN (18:41)
[2018-12-14] MEDS: OLANzapine TAB* 5 MG PO SCH ×2 (18:42→21:22)
[2018-12-15] MEDS: Lisinopril TAB* 10 MG PO SCH (09:37)
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
[2018-12-15] MEDS: Haloperidol TAB* 5 MG PO PRN (13:12)
[2018-12-15] MEDS: LORazepam TAB(*) 1 MG PO PRN (13:12)
[2018-12-15] MEDS: OLANzapine TAB* 5 MG PO SCH (20:15)
--- NOTE | 2018-12-16 10:29 | PN ---
Subjective - Subjective Date of Service: 12/16/18 Service Type: [id number] Hosp care 15 min low complexity Subjective: Joey remains psychotic. According to staff he apparently doubted that his parents were truly his parents during visitation last night, thinking they were perhaps imposters. He displays some irritability and denies this account when I ask him about it this morning. He appears to be tolerating olanzapine well and is agreeable with increasing the dose. He continues to deny SI or HI but staff note that he frequently stares at and appears to stalk others such as peers and construction workers on the unit. His systolic BP was in the 140s this AM. Objective - Appearance Appearance: Well Developed/Nourished Dysmorphic Features: No Hygiene: Normal Grooming: Disheveled - Behavior Psychomotor Activities: Normal Exhibits Abnormal Movement: No - Attitude and Relatedness Attitude and Relatedness: Psychotically Related Eye Contact: Poor - Speech Quality: Unpressured Latencies: Normal Quantity: Terse - Mood Patient's Decription of Mood: "Fine" - Affect Observed Affect: Tense Affect Consistent with: Dysphoria - Thought Process Patient's Thought Process: Coherent Thought Content: Yes Paranoid Ideation, No Passive Wish, No Suicidal Planning, No Homicidal Ideation - Sensorium Experiencing Hallucinations: No, Sensorium is Clear Type of Hallucinations: Visual: No, Auditory: No, Command: No - Level of Consciousness Level of Consciousness: Alert Orientation: Yes Intact, Yes Orientated to Time, Yes Orientated to Place, Yes Orientated to Person - Impulse Control Impulse Control: Poor - Insight and Judgement Insight and Judgement: Impaired - Group Participation Particating in Group Activities: No - Medication Management Medication Management Adherence: Yes Assessment - Assessment Merits Inpatient Hospitalization: For Immediate Safety, For Stabilization Inpatient DSM-V Dx: F20.9 Clinical Impression: 23 y.o. single, white male with a history of schizophrenia who called the police on himself due to intense feelings of paranoia, delusions and inability to care for himself in the community after self-discontinuing lurasidone therapy prior to readmission. Plan - Plan Treatment Plan: Name: ELLEN PITT Birthdate: 1995 [id number] We have discontinued lurasidone in favor of a trial of olanzapine 15mg PO qhs. Will increase this to 10mg PO BID starting today. Will also increase lisinopril to 20mg PO qday. Continue constant observations due to violent behavior. Requires further inpatient stabilization. Continued Medication Management: Different Medication Medications: Current Medications Acetaminophen (Tylenol Tab*) 650 mg PO Q4H PRN PRN Reason: PAIN; OR TEMP >101 Last Admin: 12/10/18 19:06 Dose: 650 mg Al Hydrox/Mg Hydrox/Simethicone (Maalox Plus*) 30 ml PO Q4H PRN PRN Reason: INDIGESTION Benztropine Mesylate (Cogentin Tab*) 1 mg PO BID PRN PRN Reason: dystonia Haloperidol (Haldol Tab*) 5 mg PO Q6H PRN PRN Reason: AGITATION Last Admin: 12/15/18 13:12 Dose: 5 mg Lisinopril (Prinivil Tab*) 10 mg PO DAILY [facility] Last Admin: 12/15/18 09:37 Dose: 10 mg Lorazepam (Ativan Tab(*)) 2 mg PO Q6H PRN PRN Reason: AGITATION Last Admin: 12/15/18 13:12 Dose: 2 mg Olanzapine (Zyprexa Tab*) 10 mg PO BID [facility] - Discharge Plan Discharge Plan: Inpatient Hospitalization
[2018-12-16] MEDS: OLANzapine TAB* 10 MG PO SCH ×2 (11:02→20:19)
[2018-12-16] MEDS: Lisinopril TAB* 10 MG PO SCH (11:07)
[2018-12-16] MEDS: Haloperidol TAB* 5 MG PO PRN (17:19)
[2018-12-16] MEDS: LORazepam TAB(*) 1 MG PO PRN (17:21)
[2018-12-17] MEDS: Lisinopril TAB* 10 MG PO SCH (08:44)
[2018-12-17] MEDS: OLANzapine TAB* 10 MG PO SCH ×2 (08:45→20:30)
[2018-12-17] MEDS: LORazepam TAB(*) 1 MG PO PRN (11:23)
[2018-12-17] MEDS: Haloperidol TAB* 5 MG PO PRN (11:23)
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
[2018-12-18] MEDS: Lisinopril TAB* 10 MG PO SCH (09:28)
[2018-12-18] MEDS: OLANzapine TAB* 10 MG PO SCH ×2 (09:29→19:55)
[2018-12-18] MEDS: Acetaminophen TAB* 325 MG PO PRN (21:19)
[2018-12-19] MEDS: Acetaminophen TAB* 325 MG PO PRN ×3 (01:28→21:43)
[2018-12-19] MEDS: Lisinopril TAB* 10 MG PO SCH (08:18)
[2018-12-19] MEDS: OLANzapine TAB* 10 MG PO SCH ×2 (08:19→20:48)
[2018-12-19] MEDS ORDERED: Ondansetron TAB* 4 MG PO PRN (17:59)
[2018-12-19] MEDS: LORazepam TAB(*) 1 MG PO PRN (23:13)
[2018-12-20] MEDS ORDERED: diPHENhydraMINE PO* 50 MG ONE (00:13)
[2018-12-20] MEDS: diPHENhydraMINE PO* 50 MG PO ONE ×2 (00:15→06:02)
[2018-12-20] MEDS: Acetaminophen TAB* 325 MG PO PRN ×2 (10:56→20:40)
[2018-12-20] MEDS ORDERED: LORazepam TAB(*) 1 MG PO PRN (10:56)
[2018-12-20] MEDS: OLANzapine TAB* 10 MG PO SCH ×2 (10:56→20:40)
[2018-12-20] MEDS: Lisinopril TAB* 10 MG PO SCH (12:52)
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
[2018-12-20] MEDS: diPHENhydraMINE PO* 50 MG PO PRN (22:35)
[2018-12-21] MEDS: Lisinopril TAB* 10 MG PO SCH (07:59)
[2018-12-21] MEDS: OLANzapine TAB* 10 MG PO SCH ×2 (08:00→20:25)
[2018-12-21] MEDS: Acetaminophen TAB* 325 MG PO PRN (12:50)
[2018-12-22] MEDS: Lisinopril TAB* 10 MG PO SCH (08:43)
[2018-12-22] MEDS: OLANzapine TAB* 10 MG PO SCH ×2 (08:44→20:00)
--- NOTE | 2018-12-22 15:13 | PN ---
Subjective - Subjective Date of Service: 12/22/18 Service Type: 90965 Family Medical Psyc Subjective: Joey is seen for a family meeting attended by his parents and unit ASAF Veronica. Joey appears to be pensive and uncomfortable during the meeting and his parents mutually express that they don't see him as back to his baseline yet. He reports feeling good on the medicine and says he will allow the ACT team to provide intensive outpatient services, however, he demonstrates very little spontaneous speech and appears somewhat angry, particularly at his mother. The patient's grooming is slightly better, albeit with a great deal of encouragement from staff. He is agreeable to an intake meeting with Melody Dumont, ACT pricing/signage team member, tomorrow at 3:00 PM. He denies SI or HI and now gone 10 days without violence towards others on the unit. Objective - Appearance Appearance: Well Developed/Nourished Dysmorphic Features: No Hygiene: Normal Grooming: Fairly Well Kept - Behavior Psychomotor Activities: Normal Exhibits Abnormal Movement: No - Attitude and Relatedness Attitude and Relatedness: Cooperative Eye Contact: Fair - Speech Quality: Unpressured Latencies: Normal Quantity: Terse - Mood Patient's Decription of Mood: "Okay" - Affect Observed Affect: Tense Affect Consistent with: Dysphoria - Thought Process Patient's Thought Process: Coherent Thought Content: No Passive Wish, No Suicidal Planning, No Homicidal Ideation, No Paranoid Ideation - Sensorium Experiencing Hallucinations: No, Sensorium is Clear Type of Hallucinations: Visual: No, Auditory: No, Command: No - Level of Consciousness Level of Consciousness: Alert Orientation: Yes Intact, Yes Orientated to Time, Yes Orientated to Place, Yes Orientated to Person - Impulse Control Impulse Control: Tenuous - Insight and Judgement Insight and Judgement: Fair - Group Participation Particating in Group Activities: Yes - Medication Management Medication Management Adherence: Yes Assessment - Assessment Merits Inpatient Hospitalization: For Immediate Safety, For Stabilization Inpatient DSM-V Dx: F20.9 Clinical Impression: 23 y.o. single, white male with a history of schizophrenia who called the police on himself due to intense feelings of paranoia, delusions and inability to care for himself in the community after self-discontinuing lurasidone therapy prior to readmission. Plan - Plan Treatment Plan: Name: ELLEN PITT Birthdate: 1995 [id number] We have discontinued lurasidone in favor of a trial of olanzapine 15mg PO BID. Patient also on prn Benadryl for EPS and lisinopril 20mg PO qday for HTN. Will meet with ACT team here on the unit tomorrow and then target December 24 for discharge to home. Continued Medication Management: Different Medication Medications: Current Medications Acetaminophen (Tylenol Tab*) 650 mg PO Q4H PRN PRN Reason: PAIN; OR TEMP >101 Last Admin: 12/21/18 12:50 Dose: 650 mg Al Hydrox/Mg Hydrox/Simethicone (Maalox Plus*) 30 ml PO Q4H PRN PRN Reason: INDIGESTION Last Admin: 12/19/18 14:58 Dose: 30 ml Benztropine Mesylate (Cogentin Tab*) 1 mg PO BID PRN PRN Reason: dystonia Diphenhydramine HCl (Benadryl Po*) 50 mg PO BEDTIME PRN PRN Reason: INSOMNIA Last Admin: 12/20/18 22:35 Dose: 50 mg Haloperidol (Haldol Tab*) 5 mg PO Q6H PRN PRN Reason: AGITATION Last Admin: 12/17/18 11:23 Dose: 5 mg Lisinopril (Prinivil Tab*) 20 mg PO DAILY [facility] Last Admin: 12/22/18 08:43 Dose: 20 mg Lorazepam (Ativan Tab(*)) 2 mg PO Q6H PRN PRN Reason: AGITATION Olanzapine (Zyprexa Tab*) 15 mg PO BID [facility] Last Admin: 12/22/18 08:44 Dose: 15 mg Ondansetron HCl (Zofran Tab*) 4 mg PO Q6H PRN PRN Reason: NAUSEA/VOMITTING Last Admin: 12/19/18 22:51 Dose: 4 mg - Discharge Plan Discharge Plan: Inpatient Hospitalization
[2018-12-23] MEDS: OLANzapine TAB* 10 MG PO SCH ×2 (10:26→20:03)
[2018-12-23] MEDS: Lisinopril TAB* 10 MG PO SCH (10:26)
--- NOTE | 2018-12-23 10:59 | PN ---
BSU: Group Therapy Note - Service Type Service Type: [id number] Group Psychotherapy - Cognitive Behavioral Group Therapy ( CBT):Patient was attentive and participatory in CBT programming this morning, and remained in good behavioral control. Patient expressed positive insights regarding relevant treatment interventions and goals.
[2018-12-23] MEDS: diPHENhydraMINE PO* 50 MG PO PRN (21:10)
[2018-12-24 08:20] VITALS: BP 124/64
[2018-12-24] MEDS: Lisinopril TAB* 10 MG PO SCH (08:21)
[2018-12-24] MEDS: OLANzapine TAB* 10 MG PO SCH (08:21)
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
== END 2018-12-24 17:08 | disposition home or self-care (01) | DRG 750 ==
LOC: ED 14:13 → BSU 18:45
PROVIDERS: ADMIT Psychiatry & Neurology Psychiatry; ATTEND Psychiatry & Neurology Psychiatry
PROC: GZHZZZZ Group Psychotherapy (ICD-10-PCS; principal; 2018-12-10)
DX: F20.9 Schizophrenia, unspecified (principal); I10 Essential (primary) hypertension; F32.9 Major depressive disorder, single episode, unspecified; F41.0 Panic disorder [episodic paroxysmal anxiety]; Z88.8 Allergy status to other drugs, medicaments and biological substances; Z56.0 Unemployment, unspecified; Z91.5 Personal history of self-harm; Z91.14 Patient's other noncompliance with medication regimen
CPT/HCPCS: 36415; 80053; 80061; 80307; 80320; 80329; 81003; 83036; 84443; 85025; 90847; 99222; 99231; 99283; A9270-GY; G0480

== ENCOUNTER 2019-01-05 21:30 | Inpatient (IN) | payer BC ==
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
[2019-01-06] MEDS ORDERED: Lisinopril TAB* 10 MG PO SCH (09:00)
[2019-01-06] MEDS ORDERED: OLANzapine TAB* 10 MG PO SCH (09:00)
[2019-01-06] MEDS ORDERED: Benztropine TAB* 1 MG PO PRN (10:50)
--- NOTE | 2019-01-06 10:58 | PN ---
BSU: Group Therapy Note - Service Type Service Type: [id number] Group Psychotherapy - Cognitive Behavioral Group Therapy ( CBT):Patient was attentive and participatory in CBT programming this morning, and remained in good behavioral control. Patient expressed positive insights regarding relevant treatment interventions and goals.
[2019-01-06] MEDS: Paliperidone ER TAB* 6 MG TAB.ER PO SCH (13:20)
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
[2019-01-06] MEDS: diPHENhydraMINE PO* 50 MG PO PRN (21:12)
[2019-01-07] MEDS: Lisinopril TAB* 10 MG PO SCH (08:18)
[2019-01-07] MEDS: Paliperidone ER TAB* 6 MG TAB.ER PO SCH (08:18)
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
--- NOTE | 2019-01-07 11:56 | PN ---
BSU: Group Therapy Note - Service Type Service Type: [id number] Group Psychotherapy - Cognitive Behavioral Group Therapy ( CBT):Patient was attentive and participatory in CBT programming this morning, and remained in good behavioral control. Patient expressed positive insights regarding relevant treatment interventions and goals. Brendan expresses positive insight that his difficulties with paranoia is problematic and could lead to problems with dangerous decisions.
[2019-01-07] MEDS: diPHENhydraMINE PO* 50 MG PO PRN (21:08)
[2019-01-08] MEDS: Lisinopril TAB* 10 MG PO SCH (08:28)
[2019-01-08] MEDS: Paliperidone ER TAB* 6 MG TAB.ER PO SCH (08:28)
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
[2019-01-08] MEDS: diPHENhydraMINE PO* 50 MG PO PRN (22:18)
[2019-01-09] MEDS: diPHENhydraMINE PO* 50 MG PO PRN ×2 (00:40→21:23)
[2019-01-09] MEDS: Lisinopril TAB* 10 MG PO SCH (08:15)
[2019-01-09] MEDS: Paliperidone ER TAB* 6 MG TAB.ER PO SCH (08:17)
[2019-01-09] MEDS ORDERED: LORazepam TAB(*) 1 MG PO ONE (10:45)
[2019-01-09] MEDS ORDERED: Haloperidol TAB* 5 MG PO ONE (10:45)
[2019-01-09] MEDS ORDERED: diPHENhydraMINE PO* 50 MG PO ONE (10:45)
[2019-01-09] MEDS ORDERED: Haloperidol TAB* 5 MG ONE (10:48)
[2019-01-09] MEDS ORDERED: diPHENhydraMINE PO* 25 MG ONE (10:48)
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
[2019-01-09] MEDS: LORazepam TAB(*) 1 MG PO PRN (21:23)
[2019-01-10] MEDS: Lisinopril TAB* 10 MG PO SCH (09:35)
[2019-01-10] MEDS: Paliperidone ER TAB* 6 MG TAB.ER PO SCH (09:35)
[2019-01-10] MEDS ORDERED: Paliperidone SUSTENNA* 234 MG/1.5 ML IM ONE (10:06)
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
[2019-01-10] MEDS: diPHENhydraMINE PO* 50 MG PO PRN (19:14)
[2019-01-10] MEDS: LORazepam TAB(*) 1 MG PO PRN (19:52)
[2019-01-11] MEDS ORDERED: Paliperidone ER TAB* 6 MG TAB.ER PO SCH (09:00)
[2019-01-11] MEDS: Paliperidone ER TAB* 6 MG TAB.ER PO SCH (09:52)
[2019-01-11] MEDS: Lisinopril TAB* 10 MG PO SCH (09:52)
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
[2019-01-11] MEDS ORDERED: Nicotine Inhaler* 10 MG AMP ONE (13:26)
[2019-01-11] MEDS ORDERED: Mouth Piece, Nicotine* 1 EACH CARTRIDGE ONE (13:26)
[2019-01-11] MEDS: Nicotine Inhaler* 10 MG AMP INH PRN ×5 (13:40→22:07)
[2019-01-11] MEDS: diPHENhydraMINE PO* 50 MG PO PRN (22:37)
[2019-01-11] MEDS: LORazepam TAB(*) 1 MG PO PRN (23:02)
[2019-01-12] MEDS: Nicotine Inhaler* 10 MG AMP INH PRN ×3 (07:29→15:36)
[2019-01-12] MEDS: Lisinopril TAB* 10 MG PO SCH (07:30)
[2019-01-12] MEDS: Paliperidone ER TAB* 6 MG TAB.ER PO SCH (08:28)
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
[2019-01-12] MEDS ORDERED: Mouth Piece, Nicotine* 1 EACH CARTRIDGE ONE (13:30)
[2019-01-12] MEDS: diPHENhydraMINE PO* 50 MG PO PRN (20:29)
[2019-01-13] MEDS: Nicotine Inhaler* 10 MG AMP INH PRN ×3 (08:18→18:09)
[2019-01-13] MEDS: Lisinopril TAB* 10 MG PO SCH (08:22)
[2019-01-13] MEDS ORDERED: Paliperidone SUSTENNA* 156 MG/1 ML IM ONE (09:00)
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
[2019-01-13] MEDS: LORazepam TAB(*) 1 MG PO PRN (14:24)
[2019-01-13] MEDS: diPHENhydraMINE PO* 50 MG PO PRN (22:16)
[2019-01-14] MEDS: Lisinopril TAB* 10 MG PO SCH (08:48)
[2019-01-14] MEDS: Nicotine Inhaler* 10 MG AMP INH PRN (10:58)
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
[2019-01-14] MEDS: LORazepam TAB(*) 1 MG PO PRN (17:54)
[2019-01-14] MEDS: diPHENhydraMINE PO* 50 MG PO PRN (18:10)
[2019-01-14] MEDS ORDERED: risperiDONE-M * 1 MG TAB.ORADIS PO ONE (19:10)
[2019-01-14] MEDS ORDERED: risperiDONE-M * 1 MG TAB.ORADIS ONE (19:22)
[2019-01-14] MEDS ORDERED: Acetaminophen TAB* 325 MG ONE (19:23)
[2019-01-15] MEDS: Lisinopril TAB* 10 MG PO SCH (09:10)
[2019-01-15] MEDS: LORazepam TAB(*) 1 MG PO PRN ×2 (09:44→17:07)
[2019-01-16] MEDS: Lisinopril TAB* 10 MG PO SCH (10:12)
[2019-01-16] MEDS: Acetaminophen TAB* 325 MG PO PRN (10:36)
[2019-01-16] MEDS: LORazepam TAB(*) 1 MG PO PRN ×2 (11:22→19:56)
[2019-01-17] MEDS: Lisinopril TAB* 10 MG PO SCH (10:17)
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
[2019-01-17] MEDS: Acetaminophen TAB* 325 MG PO PRN (17:47)
[2019-01-17] MEDS: LORazepam TAB(*) 1 MG PO PRN (18:30)
[2019-01-17] MEDS: Nicotine Inhaler* 10 MG AMP INH PRN (18:40)
[2019-01-17] MEDS: OLANzapine TAB* 5 MG PO SCH (20:57)
[2019-01-18] MEDS: Lisinopril TAB* 10 MG PO SCH (11:01)
[2019-01-18] MEDS: LORazepam TAB(*) 1 MG PO PRN (13:41)
[2019-01-18] MEDS: Acetaminophen TAB* 325 MG PO PRN (14:40)
[2019-01-18] MEDS: diPHENhydraMINE PO* 50 MG PO PRN (19:34)
[2019-01-18] MEDS: OLANzapine TAB* 5 MG PO SCH (19:35)
[2019-01-18] MEDS: Nicotine Inhaler* 10 MG AMP INH PRN (20:53)
[2019-01-18] MEDS ORDERED: Mouth Piece, Nicotine* 1 EACH CARTRIDGE ONE (20:53)
[2019-01-19] MEDS: Lisinopril TAB* 10 MG PO SCH (08:50)
[2019-01-19] MEDS: Nicotine Inhaler* 10 MG AMP INH PRN (08:50)
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
[2019-01-19] MEDS: Nicotine GUM* 2 MG PO PRN ×2 (16:45→20:25)
[2019-01-19] MEDS: LORazepam TAB(*) 1 MG PO PRN (18:40)
[2019-01-19] MEDS: OLANzapine TAB* 5 MG PO SCH (20:24)
[2019-01-19] MEDS: diPHENhydraMINE PO* 50 MG PO PRN (22:17)
[2019-01-20] MEDS: Lisinopril TAB* 10 MG PO SCH (08:34)
[2019-01-20] MEDS: Nicotine GUM* 2 MG PO PRN ×5 (08:35→20:15)
[2019-01-20] MEDS: OLANzapine TAB* 5 MG PO SCH (20:13)
[2019-01-21] MEDS: Lisinopril TAB* 10 MG PO SCH (09:16)
[2019-01-21] MEDS: Nicotine GUM* 2 MG PO PRN ×3 (09:17→17:39)
--- NOTE | 2019-01-21 11:11 | PN ---
BSU: Group Therapy Note - Service Type Service Type: 57225 Group Psychotherapy - Cognitive Behavioral Group Note: Joey was attentive and participatory in group this morning. He exhibits marginal insight regarding symptoms and behaviors, and continues to express frustration for his continuing hospitalization. He was more spontaneous in speech this morning than he typically is, and interacted with peers appropriately.
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
[2019-01-21] MEDS: OLANzapine TAB* 5 MG PO SCH (19:29)
[2019-01-21] MEDS: LORazepam TAB(*) 1 MG PO PRN (19:31)
[2019-01-22] MEDS: Nicotine GUM* 2 MG PO PRN ×2 (09:17→12:05)
[2019-01-22] MEDS: Lisinopril TAB* 10 MG PO SCH (09:23)
[2019-01-22] MEDS: LORazepam TAB(*) 1 MG PO PRN (12:21)
[2019-01-22] MEDS: OLANzapine TAB* 5 MG PO SCH (20:53)
[2019-01-23] MEDS: Lisinopril TAB* 10 MG PO SCH (08:32)
[2019-01-23] MEDS: Nicotine GUM* 2 MG PO PRN ×3 (08:36→19:48)
[2019-01-23] MEDS: LORazepam TAB(*) 1 MG PO PRN (12:27)
[2019-01-23] MEDS: OLANzapine TAB* 5 MG PO SCH (20:43)
[2019-01-24] MEDS: Lisinopril TAB* 10 MG PO SCH (08:35)
[2019-01-24] MEDS: Nicotine GUM* 2 MG PO PRN ×3 (08:36→17:23)
--- NOTE | 2019-01-24 13:14 | PN ---
BSU: Group Therapy Note - Service Type Service Type: 65520 Group Psychotherapy - Cognitive Behavioral Group Therapy ( CBT):Patient presented in CBT programming as disorganized and disruptive in discussion and needed repeated redirection to attend to presented materials.
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
[2019-01-24] MEDS: OLANzapine TAB* 5 MG PO SCH (19:50)
[2019-01-24] MEDS: diPHENhydraMINE PO* 50 MG PO PRN (20:18)
[2019-01-25] MEDS: Lisinopril TAB* 10 MG PO SCH (08:26)
[2019-01-25] MEDS: Nicotine GUM* 2 MG PO PRN ×2 (09:26→15:29)
[2019-01-25] MEDS: OLANzapine TAB* 5 MG PO SCH (20:52)
[2019-01-25] MEDS: diPHENhydraMINE PO* 50 MG PO PRN (21:48)
[2019-01-25] MEDS: LORazepam TAB(*) 1 MG PO PRN (21:49)
[2019-01-26 09:59] VITALS: BP 148/79
[2019-01-26] MEDS: Lisinopril TAB* 10 MG PO SCH (09:59)
[2019-01-26] MEDS: Nicotine GUM* 2 MG PO PRN ×2 (10:01→17:22)
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
[2019-01-26] MEDS: OLANzapine TAB* 5 MG PO SCH ×3 (12:39→19:49)
[2019-01-27] MEDS: Lisinopril TAB* 10 MG PO SCH (07:33)
[2019-01-27] MEDS: OLANzapine TAB* 5 MG PO SCH (07:33)
[2019-01-27] MEDS: Nicotine GUM* 2 MG PO PRN (08:17)
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
== END 2019-01-27 09:00 | DRG 750 ==
LOC: ED 21:30 → BSU 01-06 00:27
PROVIDERS: ADMIT Psychiatry & Neurology Psychiatry; ATTEND Psychiatry & Neurology Psychiatry
PROC: GZHZZZZ Group Psychotherapy (ICD-10-PCS; principal; 2019-01-06)
DX: F20.9 Schizophrenia, unspecified (principal); I10 Essential (primary) hypertension; F41.0 Panic disorder [episodic paroxysmal anxiety]; F32.9 Major depressive disorder, single episode, unspecified; F17.210 Nicotine dependence, cigarettes, uncomplicated; S60.511A Abrasion of right hand, initial encounter; W22.8XXA Striking against or struck by other objects, initial encounter; Y92.89 Other specified places as the place of occurrence of the external cause; Z72.89 Other problems related to lifestyle; Z91.5 Personal history of self-harm; Z78.1 Physical restraint status
CPT/HCPCS: 36415; 86703; 90853; 93005; 99222; 99231; 99238; 99284; A9270-GY; J2426

== ENCOUNTER 2019-06-15 08:00 | Emergency (ER) | payer BC ==
--- NOTE | 2019-06-15 08:36 | ED ---
Psychiatric Complaint - HPI Summary HPI Summary: Pt. is a 24 y.o male who presents to the ER requesting a prescription for Klonopin to help him sleep. Pt. has a hx of schizophrenia and receives monthly invega injections. Pt. is also rx zyprexa but stopped taking it a few months ago. Pt. has had numerous hospitalizations in the past. Pt. is living with various family members at the moment. 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 Pt. states he has not slept since yesterday. Pt. reportedly went outside last night and states the doors were not locked so he refused to go back inside the house fearing someone went into the house. Majority of history is provided by pt.'s mother today. Pt. denies SI or HI. Sxs are moderate in severity. No current modifying factors. - History Of Current Complaint Chief Complaint: EDMentalHealth Time Seen by Provider: 06/15/19 08:08 Hx Obtained From: Patient, Family/Lime Mixer Tender - Allergies/Home Medications Allergies/Adverse Reactions: Allergies Allergy/AdvReac Type Severity Reaction Status Date / Time No Known Allergies Allergy Verified 06/15/19 08:06 PMH/Surg Hx/FS Hx/Imm Hx Previously Healthy: Yes Cardiovascular History: Reports: Hx Hypertension Denies: Hx Auto Implanted Cardiovert Defib, Hx Pacemaker/ICD History: Reports: Other Problems/Disorders - Acute renal injury 07/01/16 Musculoskeletal History: Reports: Other Musculoskeletal History - dx rhabdomyolysis 07/01/16 Sensory History: Denies: Hx Contacts or Glasses, Hx Hearing Aid Opthamlomology History: Denies: Hx Contacts or Glasses Psychiatric History: Reports: Hx Anxiety, Hx Depression, Hx Panic Disorder, Hx Inpatient Treatment, Hx Community Mental Health Tx, Hx Schizophrenia, Hx Suicide Attempt, Hx of Violent Episodes Against Others, Hx Substance Abuse Denies: Hx Eating Disorder - Surgical History Surgery Procedure, Year, and Place: Tonsillectomy-age 6 Infectious Disease History: No Infectious Disease History: Denies: Traveled Outside the [place] in Last 30 Days - Family History Known Family History: Positive: Non-Contributory Negative: Cardiac Disease, Hypertension, Diabetes - Social History Occupation: Employed Full-time Lives: With Family Alcohol Use: None Alcohol Amount: Pt denies current use Hx Substance Use: Yes Substance Use Type: Reports: Marijuana Substance Use Comment - Amount & Last Used: benzos, ectasy, pain pills Hx Tobacco Use: Yes Smoking Status (MU): Light Every Day Tobacco Smoker Type: Cigarettes Have You Smoked in the Last Year: Yes Review of Systems Positive: Anxious, Other - paranoid All Other Systems Reviewed And Are Negative: Yes Physical Exam Triage Information Reviewed: Yes Vital Signs On Initial Exam: Initial Vitals Temp Pulse Resp BP Pulse Ox 98.2 F 89 16 143/100 97 06/15/19 08:03 06/15/19 08:03 06/15/19 08:03 06/15/19 08:03 06/15/19 08:03 Vital Signs Reviewed: Yes Appearance: Positive: Well-Appearing - Pt. sitting on bed in NAD. Appears anxious at times and speaks quickly. Mother present. Skin: Positive: Warm, Dry Head/Face: Positive: Normal Head/Face Inspection Eyes: Positive: Normal, EOMI Neck: Positive: Supple Musculoskeletal: Positive: Normal, Strength/ROM Intact Neurological: Positive: Normal, Alert, Oriented to Person Place, Time, CN Intact II-III Psychiatric: Positive: Anxious Diagnostics - Vital Signs Vital Signs Temp Pulse Resp BP Pulse Ox 06/15/19 08:03 98.2 F 89 16 143/100 97 - Laboratory Lab Statement: Any lab studies that have been ordered have been reviewed, and results considered in the medical decision making process. Course/Dx - Course Course Of Treatment: Pt. presenting with decreased sleep and paranoia. Pt. agreed to [facility]. Pt. was medically cleared and examined by . Dr. Puente consulted and does not feel pt. meets inpt. criteria at this time. He karmen be dc home with his mother to [facility] with his outpt. resources. Will return to ER if sxs change or worsen. - Differential Dx/Clinical Impression Provider Diagnosis: Adjustment disorder with mixed anxiety and depressed mood Discharge - Sign-Out/Discharge Documenting (check all that apply): Patient Departure Patient Received Moderate/Deep Sedation with Procedure: No - Discharge Plan Condition: Good Disposition: HOME Referrals: Jai BALDWIN,Noam Negrete [Primary Care Provider] - - Billing Disposition and Condition Condition: GOOD Disposition: Home
[2019-06-15 10:22] VITALS: BP 164/99
== END 2019-06-15 10:21 | disposition home or self-care (01) ==
LOC: ED 08:00
DX: F43.23 Adjustment disorder with mixed anxiety and depressed mood (principal); I10 Essential (primary) hypertension; F17.210 Nicotine dependence, cigarettes, uncomplicated
CPT/HCPCS: 99283

== ENCOUNTER 2021-04-15 01:58 | Inpatient (IN) ==
[2021-04-15] MEDS ORDERED: Al Hydrox/Mg Hydrox/Simet LIQ 30 ML UDC PO PRN (08:47)
[2021-04-15] MEDS ORDERED: Nicotine GUM 2MG FRUIT FLAVOR PO PRN (08:48)
[2021-04-16] MEDS ORDERED: Paliperidone SUSTENNA 234 MG/1.5 ML IM ONE (12:00)
[2021-04-19] MEDS ORDERED: Paliperidone SUSTENNA 156 MG/1 ML IM ONE (09:00)
[2021-04-20 08:22] LABS: HDL Cholesterol 38.2 mg/dL
[2021-04-22 08:32] VITALS: BP 143/85
[2021-05-17] MEDS ORDERED: Paliperidone SUSTENNA 234 MG/1.5 ML IM ONE (09:00)
== END 2021-04-22 13:00 | disposition home or self-care (01) | DRG 750 ==
LOC: ED 01:58 → BSU 13:45
PROVIDERS: ADMIT Psychiatry & Neurology Psychiatry; ATTEND Psychiatry & Neurology Psychiatry